=== PATIENT | male | born 1985 | race Caucasian/White ===

== ENCOUNTER 2019-10-03 07:55 | Emergency (ER) | payer MEDICAID, SELFPAY ==
[2019-10-03 07:56] VITALS: BP 144/86; PULSE 102; RESP 16; TEMP 36.9; O2SAT 97; BMI 34.2
--- NOTE | 2019-10-03 08:09 | ED.VIS.GEN ---
History of Present Illness Chief Complaint: Fever Informant: Patient Narrative: Patient states for the past couple days he has had a sore throat that is worsened. He denies any cough. He has had fever up to 103. He took Motrin around 5 or 6 this morning. No diarrhea or rashes. Patient works in healthcare at nursing homes. Patient notes he has had decreased p.o. intake because of the pain of swallowing Past Medical History - Allergies and Home Meds Allergies/Adverse Reactions: Allergies No Known Allergies Allergy (Verified 10/03/19 08:01) Primary Care Physician: Care Physician,No Primary [Primary Care Provider] - Smoking Status: Current every day smoker Review of Systems General: Reports: Chills, Fever, Malaise. Denies: Sweats Eyes: Denies: Visual changes - bilaterally, Diplopia ENT: Reports: Sore throat. Denies: Rhinorrhea Cardiovascular: Denies: Chest pain, Palpitations Respiratory: Denies: Dyspnea, Cough, Dyspnea on exertion Gastrointestinal: Denies: Abdominal pain, Nausea, Vomiting, Diarrhea, Melena, Hematochezia Genitourinary: Denies: Dysuria, Hematuria, Frequency Musculoskeletal: Reports: Myalgias, Back pain. Denies: Extremity Pain Skin: Denies: Rash, Wounds Neurological: Denies: Headache, Weakness, Numbness Physical Exam Vital Signs/Narrative: Vital Signs Temp Pulse Resp BP Pulse Ox 10/03/19 07:56 98.4 F 102 H 16 144/86 H 97 Inital Vital Signs reviewed: Yes General: Well nourished, Well developed, No Acute Distress Head: Normocephalic, Atraumatic Eyes: Perrl, EOMI ENT: Moist mucous membranes, No rhinorrhea, - - There is oral pharyngeal erythema tonsillar exudates and mild swelling. There is no evidence of retropharyngeal or peritonsillar abscess. Neck: Supple, - - There are tender anterior lymphadenopathy.. Negative for: No lymphadenopathy Cardiovascular: Regular rate, Regular rhythm, No murmurs Respiratory: No distress, CTA bilaterally, Chest nontender Abdomen: Soft, Nontender, Nondistended, Normal bowel sounds Back: Nontender, Normal Inspection Extremities: Nontender, No edema Skin: Normal color, No rash Neurological: Alert, Oriented x3, Cranial nerves II-XII grossly intact, Normal Strength, Normal Sensation Psychological: Normal affect, Normal Mood Diagnostic/Tx/Re-eval - Medical Decision Making A throat culture was obtained and COVID testing was performed. These results will not be back immediately. Patient will be discharged home after dose of Decadron. He will be started on penicillin. Patient is to self quarantine until his testing is back. ED Disposition - Plan for ED Patient: Disposition: Home or Assisted Living Diagnosis: Pharyngitis Instructions: ED Pharyngitis Report Pending Prescriptions: Penicillin V Potassium 500 mg PO 4X/DAY #40 tab Prescription Printed Referrals: Mary Grace Gan MD [STAFF PHYSICIAN] - (As needed for primary care if you do not have one.)
[2019-10-03] MEDS: dexAMETHasone 10 MG/ML Vial PO.IVFORM (08:29)
--- NOTE | 2019-10-03 08:35 | ED.RN ---
[facility] HANDOUT PROVIDED WITH MEDICAL RECORD NUMBER. INSTRUCTIONS PROVIDED FOR ACCESSING RIVKA/WEBSITE AND RECORDS. VERBALIZED UNDERSTANDING.
== END 2019-10-03 08:34 | disposition home or self-care (01) ==
LOC: ED 08:22
PROVIDERS: Emergency Provider Emergency Medicine; PCP Family Medicine
DX: J02.9 Acute pharyngitis, unspecified (principal); F17.200 Nicotine dependence, unspecified, uncomplicated
CPT/HCPCS: 87070; 87635; 99283; G2023; U0003

== ENCOUNTER 2021-02-13 11:15 | Emergency (ER) | payer MEDICAID, SELFPAY ==
[2021-02-13 11:16] VITALS: BP 144/96; PULSE 71; RESP 16; TEMP 36.7; O2SAT 100; BMI 32.8
--- NOTE | 2021-02-13 12:12 | CT_ITS ---
STUDY: CT ABDOMEN AND PELVIS WITHOUT CONTRAST REASON FOR EXAM: Male, 35 years old. Left flank pain. History of stones. RADIATION DOSAGE (If Supplied By Facility): CTDIvol = ( 18.55 ) mGy, DLP = ( 1056.63 ) mGycm TECHNIQUE: Transaxial images were obtained from the dome of the diaphragm to the symphysis pubis without oral contrast, and without intravenous contrast. Sagittal and coronal images were reconstructed. Individualized dose optimization techniques were used for this CT. COMPARISON: None. FINDINGS: The visualized lung bases are unremarkable. The visualized portions of the heart are within normal limits. Normal liver. Normal gallbladder and extrahepatic biliary system. Normal spleen. Normal pancreas. Normal bilateral adrenal glands. Tiny nonobstructive right intrarenal calculi. Punctate calculus in the upper pole calyx of the left kidney. Mild degree of left hydronephrosis and hydroureter due to a 4.2 mm x 3 mm calculus in the distal portion of the left ureter. There is a small hiatal hernia. Normal small intestine. Normal colon. The appendix is visualized and appears normal. There is scattered atherosclerotic calcification of the abdominal aorta, without a demonstrated aneurysm. Normal inferior vena cava. Normal retroperitoneum. Normal urinary bladder. There is a small umbilical hernia containing fat. Normal osseous structures. CT/Abdomen/Pelvis without Cont IMPRESSION: Nonobstructive bilateral intrarenal calculi. Mild degree of left hydronephrosis and left hydroureter due to a 4.2 mm x 3 mm calculus in the distal portion of the left ureter. Electronically Signed: Antwan Frank MD at 13:33 EDT , Service support ,
[2021-02-13 12:19] LABS: Absolute Lymphocyte Count 2.06 X10^3/uL (0.83-4.51); Absolute Neutrophil Count 6.8 X10^3/uL (2.0-7.7); Basophil# 0.07 X10^3/uL; Basophil% 0.7 % (0-1); Eosinophil# 0.36 X10^3/uL; Eosinophils% 3.6 % (0-5); Hematocrit 48.5 % (40-54); Hemoglobin 16.9 g/dL (13.0-16.5); Lymphocyte # 2.06 X10^3/ul (0.83-4.51); Lymphocyte % 20.7 % (19-41); Mean Corp Hgb Conc 34.8 g/dL (32-36); Mean Corpuscular Hgb 32.9 pg (27.0-32.0); Mean Corpuscular Volume 94.5 fL (80-94); Mean Platelet Vol. 9.4 fl (6.2-12.0); Monocyte# 0.64 X10^3/uL; Monocyte% 6.4 % (0-10); NRBC Flagged by Analyzer 0 % (0-5); Neutrophil # 6.77 X10^3/uL (2.7-7.7); Neutrophil % 68.3 % (47-70); Platelet Count 239 K/mm3 (150-450); RBC Distribution Width CV 11.9 % (11.6-14.6); RBC Distribution Width SD 41.6 fl (35.1-43.9); Red Blood Count 5.13 M/mm3 (4.6-6.2); White Blood Count 9.9 K/mm3 (4.4-11.0)
--- NOTE | 2021-02-13 12:26 | EDS_ITS ---
HPI History of Present Illness Chief Complaint: Flank Pain Informant: patient Onset/Context/Timing Onset: Today Context: Gradual Onset Timing: Continuous Quality: Sharp Location: Left lower quadrant and left flank Worsened by: Pressure Relieved by: Laying flat Narrative Narrative: Patient presents with left flank pain and hematuria that began today. Patient states he has a history of kidney stones. Patient states this feels similar to prior kidney stones. Patient states the pain is over the left flank and left lower quadrant. Patient states it feels like a pressure. Patient states it is better whenever he lays flat. Patient states his last kidney stone was approximately 4 months ago. Patient admits to nausea but denies any vomiting. Patient denies any diarrhea. Patient denies any dysuria. [facility] Medical History Kidney stones Home Medications hydrocodone-acetaminophen 1 tab PO Q6H PRN PRN 3 Days #10 tablet 02/13/21 [Rx Last Taken Unknown] Allergy/AdvReac Type Severity Reaction Status Date / Time No Known Allergies Allergy Verified 10/03/19 08:01 Social History Smoking Status: Current every day smoker tobacco type: cigarettes ROS ROS ED Constitutional Constitutional ED: Denies chills or fever(s) Eyes Eyes: Denies blurry vision or change in vision ENT ENT ED: Denies rhinorrhea or sore throat Cardiovascular Cardiovascular: Denies chest pain or palpitations Respiratory/Chest Respiratory/Chest: Denies cough or dyspnea Gastrointestinal Gastrointestinal: Reports abdominal pain and nausea; Denies vomiting Genitourinary Genitourinary ED: Reports hematuria; Denies dysuria Musculoskeletal Musculoskeletal: Reports back pain; Denies neck pain Integumentary Denies abscess or rash Neurologic Neurologic: Denies headache(s) or weakness Allergic/Immunologic Allergic/Immunologic ED: Denies mouth swelling or urticaria EXAM Physical Exam Const Vital Signs: 02/13/21 11:16 Temperature 98.0 F Temperature Source Temporal Pulse Rate 71 Respiratory Rate 16 Blood Pressure 144/96 H Blood Pressure Mean 112 Pulse Ox 100 Oxygen Delivery Method Room Air Positive well nourished and well developed General Appearance ED: well developed HEENT Reports moist mucous membranes Neck supple and no JVD Resp normal respiratory effort and clear to auscultation bilaterally Cardio regular rate, regular rhythm and no murmurs GI normal to inspection, nondistended, normoactive bowel sounds Palpation: soft and tender LLQ; Negative for guarding or rebound tenderness present Extremity normal to inspection General Extremety ED: Negative for edema or tenderness General Extremity: Negative for edema Neuro oriented x3, CN's II-XII intact bilaterally and no sensory deficits noted Sensorium / Orientation: alert Motor Exam: strength 5/5 throughout Psych mental status grossly normal Skin no rashes or lesions noted MDM MDM MDM Narrative Medical decision making narrative: Patient was given IV fluids, morphine, and Zofran here. CBC was within normal limits. Comprehensive metabolic profile was essentially within normal limits. Urinalysis shows occult blood of 250 with 5100 red blood cells. There is no evidence of urinary tract infection. CT scan of the abdomen pelvis was obtained. There is a 4 x 3 mm calculus in the left d istal ureter. There is left hydronephrosis and hydroureter. There are nonobstructive renal calculi as well. This was interpreted by the radiologist and reviewed by myself. Patient was feeling better on reevaluation. Patient was given a prescription for [place]. Patient was instructed to drink plenty of fluids. Patient was instructed to follow-up with his primary care physician and urologist in 3 to 5 days. Patient understood and was agreeable with the plan. All questions were answered. Lab Data Attestation: I reviewed the patient's lab results. Labs: Laboratory Results - last 24 hr 02/13/21 02/13/21 02/13/21 12:10 12:10 13:25 WBC 9.9 RBC 5.13 Hgb 16.9 H Hct 48.5 MCV 94.5 H MCH 32.9 H MCHC 34.8 RDW Std Deviation 41.6 RDW Coeff of Melisa 11.9 Plt Count 239 MPV 9.4 Immature Gran % (Auto) 0.300 Neut % (Auto) 68.3 Lymph % (Auto) 20.7 [place] % (Auto) 6.4 Eos % (Auto) 3.6 Baso % (Auto) 0.7 Absolute Neuts (auto) 6.8 Absolute Lymphs (auto) 2.06 Nucleated RBC % 0 Sodium 141 Potassium 3.9 Chloride 111 H Carbon Dioxide 25.0 Anion Gap 5 BUN 11 Creatinine 1.05 Estim Creat Clear Calc 106.58 Est GFR (MDRD) Af Amer 104 Est GFR (MDRD) Non-Af 86 BUN/Creatinine Ratio 10.5 Glucose 103 Calcium 9.0 Total Bilirubin 0.60 AST 14 L ALT 26 Alkaline Phosphatase 84 Total Protein 7.6 Albumin 3.7 Globulin 3.9 Albumin/Globulin Ratio 0.9 Urine Color Yellow Urine Clarity Cloudy Urine pH 6.0 Ur Specific [place] 1.015 Urine Protein 30 H Urine Glucose (UA) Normal Urine Ketones Negative Urine Occult Blood 250 H Urine Nitrite Negative Urine Bilirubin Negative Urine Urobilinogen Normal Ur Leukocyte Esterase 25 H Urine RBC 50-100 SEEN Urine WBC 0-5 SEEN Ur Squamous Epith Cells 0-5 SEEN Urine Bacteria 1+ Urine Mucus 1+ Radiography Diagnostic Testing: Clinical Impression(s) from Imaging Studies Abdomen/Pelvis CT 02/13/21 12:12 IMPRESSION: Nonobstructive bilateral intrarenal calculi. Mild degree of left hydronephrosis and left hydroureter due to a 4.2 mm x 3 mm calculus in the distal portion of the left ureter. Electronically Signed: Antwan Frank MD at 13:33 EDT , Service support , Discharge Plan Triage Chief Complaint: Flank Pain ED Provider: Ji Sims Dx/Rx/DC Orders Clinical Impression: Calculus of distal left ureter Instructions: ED Kidney Stone w/ Colic Prescriptions: New hydrocodone-acetaminophen [hydrocodone-acetaminophen] 1 TABLET tablet 1 tab PO Q6H PRN PRN (Reason: Pain) 3 Days Qty: 10 RF: 0 Primary Care Provider: Care Physician,No Primary Referrals: Care Physician,No Primary [Primary Care Provider] - 3-5 Days Disposition Disposition: Home, Self Care
[2021-02-13] MEDS: 0.9% Normal Saline 1,000 ML 1000 ML IV (12:36)
[2021-02-13] MEDS: Morphine 4 MG/ML Syringe IV ×2 (12:36→14:42)
[2021-02-13] MEDS: Ondansetron 4 MG/2 ML Vial IV (12:36)
[2021-02-13 12:41] LABS: ALB/GLOB Ratio 0.9 RATIO (0.9-2.4); AST(SGOT) 14 U/L (15-37); Alanine Aminotransfer ALT/SGPT 26 U/L (16-61); Albumin, Serum 3.7 g/dL (3.2-5.0); Alkaline Phosphatase 84 U/L (45-117); Anion Gap 5 (5-15); BUN 11 mg/dL (7-18); BUN/Creat Ratio 10.5 RATIO (10-20); Chloride 111 mmol/L (98-107); Creatinine, Serum 1.05 mg/dL (0.70-1.30); EST Glomerular Filtration Rate 86 mL/min (>60); Est Glom Filt Rate - Afr Amer 104 mL/min (>60); Estimated Creatinine Clearance 106.58 ml/min; Globulin 3.9 g/dL (2.2-4.2); Glucose 103 mg/dL (74-106); Potassium 3.9 mmol/L (3.5-5.1); Protein, Total 7.6 g/dL (6.4-8.2); Sodium Level 141 mmol/L (136-145)
[2021-02-13 13:31] LABS: Color, Urine Yellow (Yellow); Glucose, Dipstick Normal (Normal); Ketone-Dipstick Negative (Negative); Leukocyte Esterase-Dipstick 25 /ul (Negative); Nitrite-Dipstick Negative (Negative); Occult Blood-Urine 250 /ul (Negative); Protein-Dipstick 30 mg/dl (Negative); Specific Gravity, Urine 1.015 (1.002-1.030); Urine Bilirubin Dipstick Negative (Negative); Urine Clarity Cloudy (Clear); Urine Urobilinogen Normal (Normal)
[2021-02-13 13:37] LABS: Red Blood Cells-Urine 50-100 SEEN /hpf (0-5); White Blood Cells 0-5 SEEN /hpf (0-5)
[2021-02-13 13:38] LABS: Bacteria 1+ /hpf (None Seen); Mucous, Urine 1+ /hpf (<or=2+); Squamous Epithelial Cells - UA 0-5 SEEN /hpf (0-5)
[2021-02-13 15:08] VITALS: BP 161/98; PULSE 79; RESP 16; O2SAT 95
== END 2021-02-13 15:09 | disposition home or self-care (01) ==
PROVIDERS: Emergency Provider Emergency Medicine
DX: N13.2 Hydronephrosis with renal and ureteral calculous obstruction (principal); F17.210 Nicotine dependence, cigarettes, uncomplicated; Z87.442 Personal history of urinary calculi
CPT/HCPCS: 74176; 80053; 81001; 85025; 96361; 96374; 96375; 96376; 99283; J2405

== ENCOUNTER 2021-10-13 19:17 | Emergency (ER) | payer MEDICAID, SELFPAY ==
[2021-10-13 19:19] VITALS: BP 163/106; PULSE 73; RESP 18; TEMP 36.3; O2SAT 100; BMI 31.4
--- NOTE | 2021-10-13 20:30 | EDS_ITS ---
HPI History of Present Illness Chief Complaint: Flank Pain Onset/Context/Timing Onset: Days (4 days) Timing: Waxes and wanes Current Severity: Moderate Maximum Severity: Severe Narrative Narrative: Patient presents secondary to right-sided kidney stone. He was seen at the emergency room in [place] on the . Per CT report he has a 4 mm calculus in the mid right ureter. He is scheduled to see a urologist in [place] on October 29. Patient states that throughout the weekend he had continued pain. He went back to the ER today but his pain is not well controlled. He states that in spite of telling him his pain was severe they brought him his discharge paperwork. He came to [place] [facility] for further treatment. [facility] Medical History Kidney stones Home Medications ketorolac 10 mg tablet 10 mg PO Q6H PRN pain 3 days #10 tabs 10/13/21 [Rx Last Taken Unknown] oxycodone-acetaminophen 5 mg-325 mg tablet (Percocet) 1 tab PO Q6H PRN pain 3 days #10 tabs 10/13/21 [Rx Last Taken Unknown] Allergy/AdvReac Type Severity Reaction Status Date / Time No Known Allergies Allergy Verified 10/13/21 19:18 Social History Smoking Status: Current every day smoker tobacco type: cigarettes ROS ROS ED Constitutional Constitutional ED: Denies chills or fever(s) Eyes Eyes: Denies change in vision or discharge from eye(s) ENT ENT ED: Denies discharge from eye(s), rhinorrhea or sore throat Cardiovascular Cardiovascular: Denies chest pain or palpitations Respiratory/Chest Respiratory/Chest: Denies cough or dyspnea Gastrointestinal Gastrointestinal: Reports abdominal pain, nausea and vomiting; Denies diarrhea Genitourinary Genitourinary ED: Denies difficulty urinating or dysuria Musculoskeletal Musculoskeletal: Reports back pain; Denies extremity pain Integumentary Denies Abrasions or rash Neurologic Neurologic: Denies headache(s) or weakness Psychiatric Psychiatric: Denies anxiety or depression Endocrine Endocrinology: Denies polydipsia or polyuria Allergic/Immunologic Allergic/Immunologic ED: Denies lip swelling or urticaria EXAM Physical Exam Const Vital Signs: 10/13/21 19:19 Temperature 97.4 F L Temperature Source Temporal Pulse Rate 73 Respiratory Rate 18 Blood Pressure 163/106 H Blood Pressure Mean 125 Pulse Ox 100 Oxygen Delivery Method Room Air Positive well nourished and well developed General Appearance ED: well developed HEENT Reports normocephalic and head/scalp atraumatic Eyes PERRL and EOMs intact bilaterally Neck supple Chest Wall inspection of chest normal and palpation of chest normal Resp normal respiratory effort and clear to auscultation bilaterally Cardio regular rate and regular rhythm GI non-tender Auscultation: hypoactive bowel sounds Palpation: soft Back/Spine General Back: CVA tenderness right Extremity normal to inspection Neuro oriented x3 and no sensory deficits noted Sensorium / Orientation: alert Motor Exam: strength 5/5 throughout Psych mental status grossly normal Skin no rashes or lesions noted MDM MDM MDM Narrative Medical decision making narrative: Patient was initially given morphine, Zofran, Toradol. Lab work and urinalysis obtained. KUB ordered. Lab Data Attestation: I reviewed the patient's lab results. Labs: Laboratory Results - last 24 hr 10/13/21 10/13/21 10/13/21 20:05 20:05 20:05 WBC 12.8 H RBC 4.63 Hgb 15.4 Hct 45.4 MCV 98.1 H MCH 33.3 H MCHC 33.9 RDW Std Deviation 43.6 RDW Coeff of Melisa 12.1 Plt Count 204 MPV 10.0 Immature Gran % (Auto) 0.300 Neut % (Auto) 64.7 Lymph % (Auto) 21.8 [place] % (Auto) 8.6 Eos % (Auto) 4.1 Baso % (Auto) 0.5 Absolute Neuts (auto) 8.3 H Absolute Lymphs (auto) 2.78 Nucleated RBC % 0 Sodium 141 Potassium 3.9 Chloride 110 H Carbon Dioxide 27.0 Anion Gap 4 L BUN 14 Creatinine 1.23 Estim Creat Clear Calc 92.88 Est GFR (MDRD) Af Amer 86 Est GFR (MDRD) Non-Af 71 BUN/Creatinine Ratio 11.4 Glucose 82 Calcium 8.7 Urine Color Yellow Urine Clarity Sl Cldy Urine pH 6.5 Ur Specific [place] 1.010 Urine Protein 15 H Urine Glucose (UA) Normal Urine Ketones Negative Urine Occult Blood 250 H Urine Nitrite Negative Urine Bilirubin Negative Urine Urobilinogen Normal Ur Leukocyte Esterase Negative Urine RBC 50-100 SEEN Urine WBC 0 SEEN Ur Squamous Epith Cells 0 SEEN Amorphous Sediment 1+ URATE Urine Bacteria 0 SEEN Urine Mucus 0 SEEN Radiography Diagnostic Testing: Clinical Impression(s) from Imaging Studies KUB X-Ray 10/13/21 21:00 IMPRESSION: 1. Presence of a questionable 3 mm diameter distal right ureteral calculus versus phlebolith in the right pelvis, at approximately 2 cm above the bladder. 2. No evidence of other calcifications or calculi in the regions of the kidneys, ureters, or bladder. 3. Mild constipation. 4. No abdominal organomegaly. 5. Normal osseous structures. Electronically Signed: Nikita Kahn MD at 21:31 EDT , Treatment and Re-Evaluation Narrative: Lab work reveals white count of 12.8 with no significant left shift. Chemistry studies unremarkable. Urinalysis reveals blood but no sign of infection. KUB r eveals a questionable 3 mm distal right ureter calculus. I reviewed the images as well as the radiology report. On repeat evaluation patient has required 1 dose of Dilaudid here for pain but at this time seems to be improved. It appears the patient was not given any kind of anti-inflammatory to help with ureteral spasm. He will be given a prescription for Toradol as well as Percocet as he is currently out. He will be given phone number for Dr. Brown, on-call for urology. Discharge Plan Triage Chief Complaint: Flank Pain ED Provider: Liliana Butts Dx/Rx/DC Orders Clinical Impression: Ureterolithiasis Instructions: ED Kidney Stone w/ Colic Prescriptions: New oxycodone-acetaminophen [Percocet] 5-325 mg tablet 1 tab PO Q6H PRN (Reason: pain) 3 Days Qty: 10 0RF ketorolac 10 mg tablet 10 mg PO Q6H PRN (Reason: pain) 3 Days Qty: 10 0RF Primary Care Provider: Care Physician,No Primary Referrals: Anurag Brown MD [STAFF PHYSICIAN] - 1 Week if not improving Care Physician,No Primary [Primary Care Provider] - Disposition Disposition: Home, Self Care
[2021-10-13] MEDS: Morphine 4 MG/ML Syringe IV (20:32)
[2021-10-13] MEDS: Ketorolac 30 MG/ML Syringe IV (20:32)
[2021-10-13] MEDS: Ondansetron 4 MG/2 ML Vial IV (20:32)
[2021-10-13] MEDS: 0.9% Normal Saline 1,000 ML 1000 ML IV (20:32)
[2021-10-13 20:43] LABS: Bacteria 0 SEEN /hpf (None Seen); Mucous, Urine 0 SEEN /hpf (<or=2+); Squamous Epithelial Cells - UA 0 SEEN /hpf (0-5); White Blood Cells 0 SEEN /hpf (0-5)
[2021-10-13 20:45] LABS: Absolute Lymphocyte Count 2.78 X10^3/uL (0.83-4.51); Absolute Neutrophil Count 8.3 X10^3/uL (2.0-7.7); Basophil# 0.06 X10^3/uL; Basophil% 0.5 % (0-1); Color, Urine Yellow (Yellow); Eosinophil# 0.52 X10^3/uL; Eosinophils% 4.1 % (0-5); Glucose, Dipstick Normal (Normal); Hematocrit 45.4 % (40-54); Hemoglobin 15.4 g/dL (13.0-16.5); Ketone-Dipstick Negative (Negative); Leukocyte Esterase-Dipstick Negative /ul (Negative); Lymphocyte # 2.78 X10^3/ul (0.83-4.51); Lymphocyte % 21.8 % (19-41); Mean Corp Hgb Conc 33.9 g/dL (32-36); Mean Corpuscular Hgb 33.3 pg (27.0-32.0); Mean Corpuscular Volume 98.1 fL (80-94); Monocyte% 8.6 % (0-10); NRBC Flagged by Analyzer 0 % (0-5); Neutrophil # 8.27 X10^3/uL (2.7-7.7); Neutrophil % 64.7 % (47-70); Nitrite-Dipstick Negative (Negative); Occult Blood-Urine 250 /ul (Negative); Platelet Count 204 K/mm3 (150-450); Protein-Dipstick 15 mg/dl (Negative); RBC Distribution Width CV 12.1 % (11.6-14.6); RBC Distribution Width SD 43.6 fl (35.1-43.9); Red Blood Count 4.63 M/mm3 (4.6-6.2); Urine Bilirubin Dipstick Negative (Negative); Urine Urobilinogen Normal (Normal); Urine pH 6.5 (5.0 - 8.0); White Blood Count 12.8 K/mm3 (4.4-11.0)
[2021-10-13 20:57] LABS: Anion Gap 4 (5-15); BUN 14 mg/dL (7-18); BUN/Creat Ratio 11.4 RATIO (10-20); Calcium,Total 8.7 mg/dL (8.5-10.1); Chloride 110 mmol/L (98-107); Creatinine, Serum 1.23 mg/dL (0.70-1.30); EST Glomerular Filtration Rate 71 mL/min (>60); Est Glom Filt Rate - Afr Amer 86 mL/min (>60); Estimated Creatinine Clearance 92.88 ml/min; Glucose 82 mg/dL (74-106); Potassium 3.9 mmol/L (3.5-5.1); Sodium Level 141 mmol/L (136-145)
--- NOTE | 2021-10-13 21:00 | RAD_ITS ---
STUDY: AP ABDOMEN X-RAY SERIES OF 2105 HOURS ON 10/13/2021 REASON FOR EXAM: 36-year-old male with right ureterolithiasis. TECHNIQUE: 3 AP views of the abdomen were obtained. COMPARISON: None. FINDINGS: The osseous structures are normal. There is no abdominal organomegaly. Mild constipation is seen. No evidence of calcifications or calculi in the regions of the kidneys or proximal ureters. There is a questionable 3 mm in diameter calculus or phlebolith in the right pelvis overlying the inferior right sacrum, approximately 2 cm above the bladder. There is no evidence of a calcification or calculi in the region of the ureters or bladder. RAD/Abdomen Single View IMPRESSION: 1. Presence of a questionable 3 mm diameter distal right ureteral calculus versus phlebolith in the right pelvis, at approximately 2 cm above the bladder. 2. No evidence of other calcifications or calculi in the regions of the kidneys, ureters, or bladder. 3. Mild constipation. 4. No abdominal organomegaly. 5. Normal osseous structures. Electronically Signed: Nikita Kahn MD at 21:31 EDT ,
[2021-10-13] MEDS: HYDROmorphone 1 MG/ML Syringe IV (21:25)
[2021-10-13 21:27] LABS: Red Blood Cells-Urine 50-100 SEEN /hpf (0-5)
[2021-10-13 21:28] LABS: Amorphous Sediment 1+ URATE; Urine Clarity Sl Cldy (Clear)
[2021-10-13 22:18] VITALS: RESP 18
== END 2021-10-13 22:19 | disposition home or self-care (01) ==
PROVIDERS: Emergency Provider Emergency Medicine; Visit Provider Emergency Medicine
DX: N20.1 Calculus of ureter (principal); F17.210 Nicotine dependence, cigarettes, uncomplicated; Z87.442 Personal history of urinary calculi
CPT/HCPCS: 74018; 80048; 81001; 85025; 96361; 96374; 96375; 99283; J7030; A4216; J2405

== ENCOUNTER → 2022-07-08 | Outpatient (CLI) | payer BC, MEDICAID, SELFPAY ==
--- NOTE | 2022-07-08 14:08 | RAD_ITS ---
STUDY: X-RAY - LUMBAR SPINE REASON FOR EXAM: Male, 37 years old. Low back pain. TECHNIQUE: 2 view(s) of the lumbar spine were obtained. COMPARISON: None FINDINGS: Normal lumbar lordosis. There is no substantial scoliosis. There is a normal alignment of the vertebrae. Mild diffuse facet sclerosis. No acute abnormality. Normal disc space heights. The soft tissue structures are unremarkable. RAD/Lumbar Spine 2 or 3 Views IMPRESSION: Mild diffuse facet sclerosis. No acute abnormality, evidence of erosive changes/fusion. Electronically Signed: Dominguez Montes, at 15:47 EDT ,
--- NOTE | 2022-07-08 14:08 | RAD_ITS ---
STUDY: X-RAY - THORACIC SPINE REASON FOR EXAM: Male, 37 years old. Back pain. TECHNIQUE: 3 view(s) of the thoracic spine were obtained. COMPARISON: None. FINDINGS: Normal kyphosis of the thoracic spine. There is no substantial scoliosis. Mild diffuse intervertebral disc space narrowing with small osteophytes. No acute abnormality. Normal soft tissues. RAD/Thoracic Spine 3 Views IMPRESSION: Mild diffuse thoracic spondylosis. No other abnormality. Electronically Signed: Dominguez Montes, at 15:46 EDT ,
--- NOTE | 2022-07-08 14:08 | RAD_ITS ---
STUDY: X-RAY - RIGHT SHOULDER REASON FOR EXAM: Male, 37 years old. Right shoulder pain. TECHNIQUE: 4 view(s) of the shoulder. COMPARISON: None. FINDINGS: Normal glenohumeral articulation. Mild arthrosis of the AC joint. Normal acromion. Normal humeral head and visualized proximal humerus. Normal soft tissues. Normal visualized pulmonary apex. RAD/Shoulder min 2 Views IMPRESSION: Mild arthrosis of the AC joint. No other abnormality. Electronically Signed: Dominguez Montes, at 15:33 EDT ,
[2022-07-08 15:28] LABS: Absolute Lymphocyte Count 2.44 X10^3/uL (0.83-4.51); Absolute Neutrophil Count 7.1 X10^3/uL (2.0-7.7); Basophil# 0.09 X10^3/uL; Basophil% 0.8 % (0-1); Eosinophils% 3.7 % (0-5); Hematocrit 49.4 % (40-54); Hemoglobin 16.7 g/dL (13.0-16.5); Lymphocyte # 2.44 X10^3/ul (0.83-4.51); Lymphocyte % 22.5 % (19-41); Mean Corp Hgb Conc 33.8 g/dL (32-36); Mean Corpuscular Hgb 32.7 pg (27.0-32.0); Mean Corpuscular Volume 96.9 fL (80-94); Mean Platelet Vol. 9.9 fl (6.2-12.0); Monocyte# 0.78 X10^3/uL; Monocyte% 7.2 % (0-10); NRBC Flagged by Analyzer 0 % (0-5); Neutrophil # 7.09 X10^3/uL (2.7-7.7); Neutrophil % 65.5 % (47-70); Platelet Count 244 K/mm3 (150-450); RBC Distribution Width CV 12.1 % (11.6-14.6); RBC Distribution Width SD 43.5 fl (35.1-43.9); White Blood Count 10.8 K/mm3 (4.4-11.0)
[2022-07-08 16:37] LABS: ALB/GLOB Ratio 1.3 RATIO (0.9-2.4); AST(SGOT) 17 U/L (15-37); Alanine Aminotransfer ALT/SGPT 30 U/L (16-61); Albumin, Serum 4.2 g/dL (3.2-5.0); Alkaline Phosphatase 86 U/L (45-117); Anion Gap 7 (5-15); BUN 15 mg/dL (7-18); Calcium,Total 9.2 mg/dL (8.5-10.1); Chloride 108 mmol/L (98-107); Cholesterol 155 mg/dL (200); Creatinine, Serum 1.07 mg/dL (0.70-1.30); EST Glomerular Filtration Rate 84 mL/min (>60); Est Glom Filt Rate - Afr Amer 101 mL/min (>60); Globulin 3.3 g/dL (2.2-4.2); Glucose 80 mg/dL (74-106); High Density Lipoprotein 37 mg/dL; Protein, Total 7.5 g/dL (6.4-8.2); Sodium Level 142 mmol/L (136-145); Thyroid Stim Hormone (TSH) 2.52 uIU/mL (0.358-3.74); Triglycerides 138 mg/dL; Very Low Density Lipoprotein 28 mg/dL (5-40)
== END | disposition home or self-care (01) ==
PROVIDERS: PCP Nurse Practitioner Family; Visit Provider Nurse Practitioner Family
DX: M54.16 Radiculopathy, lumbar region (principal); M54.6 Pain in thoracic spine; G89.29 Other chronic pain; M25.511 Pain in right shoulder
CPT/HCPCS: 36415; 72072; 72100; 73030; 80053; 80061; 84443; 85025

== ENCOUNTER 2022-08-30 21:04 | Emergency (ER) | payer MEDICAID, SELFPAY ==
[2022-08-30 21:05] VITALS: BP 157/109; PULSE 89; RESP 18; TEMP 36.1; O2SAT 100; BMI 32.4
--- NOTE | 2022-08-30 21:21 | ED.VIS.GI ---
HPI HPI - GI History of Present Illness Chief Complaint: Abd Pain Detail of Chief Complaint: Abdominal pain, vomiting, and diarrhea Informant: patient Narrative Narrative: Patient presents the emergency department with complaint of abdominal pain x2 days. Patient states that he is also had vomiting and diarrhea frequently. He had about 4 episodes of vomiting today and about 7 or 8 watery stools. 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 Patient states he had a fever up to 102 at home. He said chills and sweats. No prior abdominal surgeries. PFSH PFSH Medical History (Updated 08/30/22 @ 23:[address] Gregg Smith, DO) Back problem Caffeine abuse, continuous Chronic right shoulder pain Chronic thoracic back pain Kidney stones Lumbar radiculopathy, chronic Marijuana abuse Home Medications dicyclomine 10 mg capsule 20 mg PO TIDAC #20 CAPSULES 08/30/22 [Rx Last Taken Unknown] ondansetron 4 mg disintegrating tablet 4 mg PO Q8H PRN PRN Nausea #10 tabs 08/30/22 [Rx Last Taken Unknown] Allergy/AdvReac Type Severity Reaction Status Date / Time No Known Allergies Allergy Verified 08/30/22 21:07 Family History (Updated 07/08/22 @ 13:01 by Toya Mancilla) Other Angina at rest Anxiety Colon cancer Depression Diabetes Hypertension Melanoma Myocardial infarction Surgical History (Updated 07/08/22 @ 12:59 by Toya Mancilla) History of colonoscopy Social History (Updated 07/08/22 @ 13:00 by Toya Mancilla) Smoking Status: Current every day smoker tobacco type: cigarettes alcohol intake: never substance use type: does not use what type of physical activity do you participate in: none ROS ROS ED Review of Systems ROS Unobtainable: other Constitutional Constitutional ED: Reports lethargy; Denies chills, fever(s), sweats or weight loss Eyes Eyes: Denies blurry vision, change in vision or diplopia ENT ENT ED: Denies rhinorrhea or sore throat Cardiovascular Cardiovascular: Denies chest pain, orthopnea or racing heartbeat Respiratory/Chest Respiratory/Chest: Denies cough, dyspnea, dyspnea on exertion, orthopnea or sputum Gastrointestinal Gastrointestinal: Reports abdominal pain, diarrhea, nausea and vomiting Genitourinary Genitourinary ED: Denies dysuria, hematuria or urinary frequency Musculoskeletal Musculoskeletal: Denies arthralgias, back pain, myalgias or neck pain Integumentary Denies abscess, Abrasions or rash Neurologic Neurologic: Denies headache(s) or weakness Psychiatric Psychiatric: Denies anxiety, depression or suicidal thoughts Endocrine Endocrinology: Denies polydipsia, polyphagia or polyuria Hematologic/Lymphatic Hematologic/Lymphatic: Denies easy bleeding, easy bruising or lymphadenopathy Allergic/Immunologic Allergic/Immunologic ED: Denies mouth swelling, tongue swelling or urticaria EXAM Physical Exam Const Vital Signs: 08/30/22 21:05 08/30/22 22:49 Temperature 96.9 F L Temperature Source Temporal Pulse Rate 89 66 Respiratory Rate 18 Blood Pressure 157/109 H 135/89 H Blood Pressure Mean 125 104 Pulse Ox 100 Oxygen Delivery Method Room Air Room Air Fraction of Inspired Oxygen (FIO2) 98 Positive well nourished and well developed General Appearance ED: well developed and NAD HEENT Reports TM's clear and moist mucous membranes normocephalic and atraumatic; Negative for trauma or tenderness Tympanic Membrane ED: Yes TM's clear Eyes PERRL and EOMs intact bilaterally General Eye ED: Negative for pale conjunctiva or scleral icterus Neck no lymphadenopathy, supple and no JVD General: Negative for tenderness Chest Wall inspection of chest normal and palpation of chest normal Chest: Negative for tenderness Resp normal respiratory effort and clear to auscultation bilaterally Effort and Inspection: Negative for respiratory distress or pain with movement Auscultation: Negative for rhonchi, wheezes or diminished lung sounds Cardio regular rate, regular rhythm, S1 normal heart sound, S2 normal heart sound and no murmurs Peripheral Pulses: pulses 2+ throughout GI normal to inspection, nondistended, normoactive bowel sounds, soft to palpation, non-distended and no masses GI Narrative: Hyperactive bowel sounds. Mild diffuse tenderness throughout. There is no rebound, rigidity, or. Signs. Back/Spine no CVA tenderness and no thoracic nor lumbar tenderness Extremity normal to inspection General Extremety ED: Negative for edema General Extremity: Negative for edema Neuro oriented x3, CN's II-XII intact bilaterally, no sensory deficits noted and gait normal Sensorium / Orientation: awake, alert, oriented to person, oriented to place and oriented to time Motor Exam: strength 5/5 throughout and strength abnormal Psych mental status grossly normal Skin no rashes or lesions noted and no wounds MDM MDM MDM Narrative Medical decision making narrative: Patient presents with abdominal pain as well as vomiting and diarrhea. In the differential would be gastroenteritis versus other acute intra-abdominal process. Patient had a CBC with differential that showed a white count of 11.5 with a hemoglobin of 15.3 and a hematocrit of 44.4. Platelet count was 204. Chemistries unremarkable other than the depressed potassium of 3.1. I suspect the potassium is depressed secondary to diarrhea. While in department he was given a liter of the same fluid bolus and given Zofran and Bentyl. He had some pain relief with that but continues to complain of left lower quadrant pain. Patient was given 4 mg of morphine IV. I did obtain a CT scan of the abdomen pelvis without contrast to evaluate further his abdominal pain. He does have history of kidney stones. CT scan was read by radiology as small left renal stone otherwise no acute disease process. Discussed results with patient. He was feeling improved after treatment. I did also give him Imodium prior to discharge. Suspect patient likely has a viral gastroenteritis. Patient given a prescription for Zofran and Bentyl. Advised to follow-up with primary care physician 3 to 5 days. Patient advised to return if worsening pain, persistent vomiting, diarrhea, dehydration, or condition worsening way. Lab Data Attestation: I reviewed the patient's lab results. Labs: Laboratory Results - last 24 hr 08/30/22 08/30/22 21:30 21:30 WBC 11.5 H RBC 4.60 Hgb 15.3 Hct 44.4 MCV 96.5 H MCH 33.3 H MCHC 34.5 RDW Std Deviation 42.3 RDW Coeff of Melisa 11.9 Plt Count 204 MPV 9.6 Immature Gran % (Auto) 0.300 Neut % (Auto) 77.2 H Lymph % (Auto) 15.4 L [place] % (Auto) 5.6 Eos % (Auto) 1.2 Baso % (Auto) 0.3 Absolute Neuts (auto) 8.8 H Absolute Lymphs (auto) 1.76 Nucleated RBC % 0 Sodium 142 Potassium 3.1 L Chloride 111 H Carbon Dioxide 24.0 Anion Gap 7 BUN 11 Creatinine 0.82 Estim Creat Clear Calc 138.01 Est GFR (MDRD) Af Amer 137 Est GFR (MDRD) Non-Af 114 BUN/Creatinine Ratio 13.4 Glucose 147 H Calcium 8.8 Radiography Diagnostic Testing: Clinical Impression(s) from Imaging Studies Abdomen/Pelvis CT 08/30/22 22:07 IMPRESSION: Nonobstructive left renal stones. No hydronephrosis. Electronically Signed: Yao Meng DO at 23:13 EDT Reading Location ID and State: [facility] / [place] Tel [phone], Service support , Discharge Plan Triage Chief Complaint: Abd Pain ED Provider: Gregg Smith Dx/Rx/DC Orders Clinical Impression: Viral gastroenteritis, Abdominal pain Instructions: ED Gastroenteritis, Viral (Adult) Prescriptions: New ondansetron [ondansetron] 4 mg tablet,disintegrating 4 mg PO Q8H PRN PRN (Reason: Nausea) Qty: 10 0RF dicyclomine 10 mg capsule 20 mg PO TIDAC Qty: 20 0RF Primary Care Provider: Hector Segovia NP Referrals: Hector Segovia NP, [facility] [Primary Care Provider] - 3-5 Days Disposition Disposition: Home, Self Care
[2022-08-30] MEDS: Ondansetron 4 MG/2 ML Vial IV (21:28)
[2022-08-30] MEDS: 0.9% Normal Saline 1,000 ML 1000 ML IV (21:28)
[2022-08-30] MEDS: Dicyclomine 20 MG/2 ML Vial IM (21:30)
[2022-08-30 21:51] LABS: Absolute Lymphocyte Count 1.76 X10^3/uL (0.83-4.51); Absolute Neutrophil Count 8.8 X10^3/uL (2.0-7.7); Basophil# 0.04 X10^3/uL; Basophil% 0.3 % (0-1); Eosinophil# 0.14 X10^3/uL; Eosinophils% 1.2 % (0-5); Hematocrit 44.4 % (40-54); Hemoglobin 15.3 g/dL (13.0-16.5); Lymphocyte # 1.76 X10^3/ul (0.83-4.51); Lymphocyte % 15.4 % (19-41); Mean Corp Hgb Conc 34.5 g/dL (32-36); Mean Corpuscular Hgb 33.3 pg (27.0-32.0); Mean Corpuscular Volume 96.5 fL (80-94); Mean Platelet Vol. 9.6 fl (6.2-12.0); Monocyte# 0.64 X10^3/uL; Monocyte% 5.6 % (0-10); NRBC Flagged by Analyzer 0 % (0-5); Neutrophil # 8.84 X10^3/uL (2.7-7.7); Neutrophil % 77.2 % (47-70); Platelet Count 204 K/mm3 (150-450); RBC Distribution Width CV 11.9 % (11.6-14.6); RBC Distribution Width SD 42.3 fl (35.1-43.9); White Blood Count 11.5 K/mm3 (4.4-11.0)
[2022-08-30 22:03] LABS: Anion Gap 7 (5-15); BUN 11 mg/dL (7-18); BUN/Creat Ratio 13.4 RATIO (10-20); Calcium,Total 8.8 mg/dL (8.5-10.1); Chloride 111 mmol/L (98-107); Creatinine, Serum 0.82 mg/dL (0.70-1.30); EST Glomerular Filtration Rate 114 mL/min (>60); Est Glom Filt Rate - Afr Amer 137 mL/min (>60); Estimated Creatinine Clearance 138.01 ml/min; Glucose 147 mg/dL (74-106); Potassium 3.1 mmol/L (3.5-5.1); Sodium Level 142 mmol/L (136-145)
--- NOTE | 2022-08-30 22:07 | CT_ITS ---
STUDY: CT ABDOMEN AND PELVIS WITHOUT CONTRAST REASON FOR EXAM: Male, 37 years old. abdominal pain RADIATION DOSAGE (If Supplied By Facility): CTDIvol = ( 14.15 ) mGy, DLP = ( 742.51 ) mGycm TECHNIQUE: Transaxial images were obtained from the dome of the diaphragm to the symphysis pubis without oral contrast, and without intravenous contrast. Sagittal and coronal images were reconstructed. Individualized dose optimization techniques were used for this CT. COMPARISON: February 13, 2021. FINDINGS: The visualized lung bases are unremarkable. The visualized portions of the heart are within normal limits. Normal liver. Normal gallbladder and extrahepatic biliary system. Normal spleen. Normal pancreas. Normal bilateral adrenal glands. Normal right kidney. Up to 2 mm stones in the left kidney. Normal visualized stomach. Normal small intestine. Normal colon. The appendix is visualized and appears normal. Normal abdominal aorta. Normal inferior vena cava. Normal retroperitoneum. Normal urinary bladder. Normal abdominal wall. Normal osseous structures. CT/Abdomen/Pelvis without Cont IMPRESSION: Nonobstructive left renal stones. No hydronephrosis. Electronically Signed: Yao Meng DO at 23:13 EDT Reading Location ID and State: [facility] / [place] Tel [phone], Service support ,
[2022-08-30] MEDS: Morphine 4 MG/ML Syringe IV (22:43)
[2022-08-30] MEDS: Potassium Chloride Oral Tablet 20 MEQ 40 MEQ PO (22:44)
[2022-08-30 22:49] VITALS: BP 135/89; PULSE 66
[2022-08-30 23:21] VITALS: BP 135/86; PULSE 58; RESP 16; TEMP 36.9
[2022-08-30] MEDS: Loperamide 2 MG Capsule 4 MG PO (23:25)
== END 2022-08-30 23:28 | disposition home or self-care (01) ==
PROVIDERS: Emergency Provider Emergency Medicine; PCP Nurse Practitioner Family; Visit Provider Emergency Medicine
DX: A08.4 Viral intestinal infection, unspecified (principal); F17.210 Nicotine dependence, cigarettes, uncomplicated
CPT/HCPCS: 74176; 80048; 85025; 96361; 96372; 96374; 96375; 99284; J7030; A4216; J2405

== ENCOUNTER 2022-09-07 13:26 | Inpatient (IN) | payer MEDICAID, SELFPAY ==
[2022-09-07 13:28] VITALS: BP 153/91; PULSE 121; RESP 20; TEMP 36.1; O2SAT 97; BMI 32.8
[2022-09-07 15:25] LABS: Absolute Lymphocyte Count 1.64 X10^3/uL (0.83-4.51); Absolute Neutrophil Count 9.3 X10^3/uL (2.0-7.7); Basophil# 0.06 X10^3/uL; Basophil% 0.5 % (0-1); Eosinophil# 0.15 X10^3/uL; Eosinophils% 1.3 % (0-5); Hematocrit 47.8 % (40-54); Hemoglobin 16.9 g/dL (13.0-16.5); Lymphocyte # 1.64 X10^3/ul (0.83-4.51); Lymphocyte % 13.9 % (19-41); Mean Corp Hgb Conc 35.4 g/dL (32-36); Mean Corpuscular Hgb 33.9 pg (27.0-32.0); Mean Platelet Vol. 9.3 fl (6.2-12.0); Monocyte# 0.53 X10^3/uL; Monocyte% 4.5 % (0-10); NRBC Flagged by Analyzer 0 % (0-5); Neutrophil # 9.34 X10^3/uL (2.7-7.7); Neutrophil % 79.5 % (47-70); Platelet Count 269 K/mm3 (150-450); RBC Distribution Width SD 42.2 fl (35.1-43.9); Red Blood Count 4.98 M/mm3 (4.6-6.2); White Blood Count 11.8 K/mm3 (4.4-11.0)
[2022-09-07 15:40] LABS: ALB/GLOB Ratio 1.1 RATIO (0.9-2.4); AST(SGOT) 12 U/L (15-37); Alanine Aminotransfer ALT/SGPT 23 U/L (16-61); Albumin, Serum 3.9 g/dL (3.2-5.0); Alkaline Phosphatase 89 U/L (45-117); Anion Gap 7 (5-15); BUN 15 mg/dL (7-18); BUN/Creat Ratio 13.9 RATIO (10-20); Calcium,Total 9.2 mg/dL (8.5-10.1); Chloride 110 mmol/L (98-107); Creatinine, Serum 1.08 mg/dL (0.70-1.30); EST Glomerular Filtration Rate 83 mL/min (>60); Est Glom Filt Rate - Afr Amer 100 mL/min (>60); Estimated Creatinine Clearance 101.68 ml/min; Globulin 3.6 g/dL (2.2-4.2); Glucose 130 mg/dL (74-106); Potassium 3.8 mmol/L (3.5-5.1); Protein, Total 7.5 g/dL (6.4-8.2); Sodium Level 142 mmol/L (136-145)
--- NOTE | 2022-09-07 15:42 | HP.PCM.HOS_ITS ---
HPI - General HPI Narrative MARIS FABIAN, is a 37 M who presents [facility] Medical History Back problem Caffeine abuse, continuous Chronic right shoulder pain Chronic thoracic back pain Kidney stones Lumbar radiculopathy, chronic Marijuana abuse Home Medications NK 09/07/22 [History Last Taken Unknown] Allergy/AdvReac Type Severity Reaction Status Date / Time No Known Allergies Allergy Verified 09/07/22 14:03 Family History (Updated 07/08/22 @ 13:01 by Toya Mancilla) Other Angina at rest Anxiety Colon cancer Depression Diabetes Hypertension Melanoma Myocardial infarction Surgical History History of colonoscopy Social History (Updated 07/08/22 @ 13:00 by Toya Mancilla) Smoking Status: Current every day smoker tobacco type: cigarettes alcohol intake: never substance use type: does not use what type of physical activity do you participate in: none Vital Signs Vital Signs Vital Signs: 09/07/22 13:28 Temperature 97 F L Temperature Source Temporal Pulse Rate 121 H Respiratory Rate 20 H Blood Pressure 153/91 H Blood Pressure Mean 111 Pulse Ox 97 Oxygen Delivery Method Room Air Weight Weight: 235 lb 3.732 oz Body Mass Index (BMI) 32.8 Results Lab / Micro Data Result Diagrams: 09/07/22 15:15 09/07/22 15:15 Labs: Laboratory Results - last 24 hr 09/07/22 15:15: WBC 11.8 H, RBC 4.98, Hgb 16.9 H, Hct 47.8, MCV 96.0 H, MCH 33.9 H, MCHC 35.4, RDW Std Deviation 42.2, RDW Coeff of Melisa 12.0, Plt Count 269, MPV 9.3, Immature Gran % (Auto) 0.300, Neut % (Auto) 79.5 H, Lymph % (Auto) 13.9 L, [place] % (Auto) 4.5, Eos % (Auto) 1.3, Baso % (Auto) 0.5, Absolute Neuts (auto) 9.3 H, Absolute Lymphs (auto) 1.64, Nucleated RBC % 0 09/07/22 15:15: Sodium 142, Potassium 3.8, Chloride 110 H, Carbon Dioxide 25.0, Anion Gap 7, BUN 15, Creatinine 1.08, Estim Creat Clear Calc 101.68, Est GFR (MDRD) Af Amer 100, Est GFR (MDRD) Non-Af 83, BUN/Creatinine Ratio 13.9, Glucose 130 H, Calcium 9.2, Total Bilirubin 1.20 H, AST 12 L, ALT 23, Alkaline Phosphatase 89, Total Protein 7.5, Albumin 3.9, Globulin 3.6, Albumin/Globulin Ratio 1.1
--- NOTE | 2022-09-07 15:42 | PCM.HP.STD ---
[facility] - General General Date of Admission: 09/07/22 Date of Service: 09/07/22 Chief Complaint: Oral opioid tablet dependence for 4 to 6 months. Wants detox. HPI Narrative MARIS FABIAN, is a 37 M with history of chronic pain attributes to bilateral kidney stones, spine, degenerative arthritis of shoulders, hips and knees came to ER for help for opioid detox. Patient states he takes 5 tablets fentanyl/oxycodone of 30 mg each for 5 to 6 months. He does not know the exact content but he stated that it is mixed with opioid medications. He denies IV use, alcohol, methamphetamine, Bath salt, ecstasy, benzodiazepines or other medications. Sometimes uses marijuana. He also smokes cigarettes a pack per day since age of 14 to 15 years. Sometimes he gets withdrawal symptoms like anxiety, restlessness, fidgety, could not sleep, constipation with opioids and then diarrhea. He also gets muscle cramps and pain. Patient stated he has multiple bilateral kidney stones and had required left ureteric stent and laser lithotripsy in [place] for 5 years ago. He has also seen Dr. Segovia for pain management. In ED vitals shows heart rate 121, respiratory rate 20 blood pressure 153/91. Labs were reviewed and discussed in assessment plan. Past medical history: PTSD, chronic pain use besides mentioned below. Social history: Patient has ex-. He has 2 children lives with her mother. Rest substance use history as described above. Family history: He has both mother and father have psychiatric issues and chronic alcoholic. He does not know their exact psychiatric diagnosis. [facility] Medical History Back problem Caffeine abuse, continuous Chronic right shoulder pain Chronic thoracic back pain Kidney stones Lumbar radiculopathy, chronic Marijuana abuse Home Medications NK 09/07/22 [History Last Taken Unknown] Allergy/AdvReac Type Severity Reaction Status Date / Time No Known Allergies Allergy Verified 09/07/22 16:07 Family History Other Angina at rest Anxiety Colon cancer Depression Diabetes Hypertension Melanoma Myocardial infarction Surgical History History of colonoscopy Social History Smoking Status: Current every day smoker tobacco type: cigarettes alcohol intake: never substance use type: does not use what type of physical activity do you participate in: none ROS ROS Narrative Constitutional: Reports fatigue and weakness. No fever. Chronic pain HEENT: Reports systems reviewed and no addt'l complaints, except as documented Respiratory/Chest: No acute shortness of breath or respiratory distress or wheezing. CVS: No chest pain pressure or tightness. Gastrointestinal: Denies coffee ground emesis, hematemesis or vomiting Genitourinary: States kidney stone pain. Denies burning urination or new urinary tract symptoms Musculoskeletal: Chronic back pain, shoulder, knee and hip pains. Denies acute joint pain or limited range of motion. No acute injury Neurologic: Denies seizure-like symptoms. skin: No ulcer. No rash Endocrinology: No diabetes melitis history. Reports systems reviewed and no addt'l complaints, except as documented Hematologic/Lymphatic: Reports systems reviewed and no addt'l complaints, except as documented Rest 14 ROS are negative except as mentioned in HPI Vital Signs Vital Signs Vital Signs: 09/07/22 13:28 Temperature 97 F L Temperature Source Temporal Pulse Rate 121 H Respiratory Rate 20 H Blood Pressure 153/91 H Blood Pressure Mean 111 Pulse Ox 97 Oxygen Delivery Method Room Air Weight Weight: 235 lb 3.732 oz Body Mass Index (BMI) 32.8 Physical Exam Narrative Physical exam General: Alert, Oriented x3, Cooperative HEENT: Atraumatic, PERRLA, EOMI, Normocephalic Oral: Oral mucosa moist. No Gingival or Mucosal Lesions/ Ulcerations Neck: Supple, No JVD, Negative Carotid Bruits Lungs: Air entry diminished in bilateral lung bases. No crepitation/rhonchi Cardiovascular: Regular rate, Regular Rhythm, Normal S1, Normal S2, No murmurs Abdomen: Bowel Sounds Present, Soft, Non Tender, Non-Distended : No renal angle tenderness. No dysuria or new LUTS no suprapubic tenderness. Extremities: No edema, Capillary Refill Less than 3 Seconds Skin: No rashes, No breakdown Musculoskeletal: Mild tenderness over lumbar spine and paraspinal muscles, nonspecific. No Tenderness to Palpation of peripheral joints or Extremities Neurological: Cranial nerves II-XII grossly intact, DTR 2+/4 and Symmetrical, Neuro grossly intact Psych/Mental Status: Flat affect, pain medication dependence Results Lab / Micro Data Result Diagrams: 09/07/22 15:15 09/07/22 15:15 Labs: Laboratory Results - last 24 hr 09/07/22 15:15: WBC 11.8 H, RBC 4.98, Hgb 16.9 H, Hct 47.8, MCV 96.0 H, MCH 33.9 H, MCHC 35.4, RDW Std Deviation 42.2, RDW Coeff of Melisa 12.0, Plt Count 269, MPV 9.3, Immature Gran % (Auto) 0.300, Neut % (Auto) 79.5 H, Lymph % (Auto) 13.9 L, [place] % (Auto) 4.5, Eos % (Auto) 1.3, Baso % (Auto) 0.5, Absolute Neuts (auto) 9.3 H, Absolute Lymphs (auto) 1.64, Nucleated RBC % 0 09/07/22 15:15: Sodium 142, Potassium 3.8, Chloride 110 H, Carbon Dioxide 25.0, Anion Gap 7, BUN 15, Creatinine 1.08, Estim Creat Clear Calc 101.68, Est GFR (MDRD) Af Amer 100, Est GFR (MDRD) Non-Af 83, BUN/Creatinine Ratio 13.9, Glucose 130 H, Calcium 9.2, Total Bilirubin 1.20 H, AST 12 L, ALT 23, Alkaline Phosphatase 89, Total Protein 7.5, Albumin 3.9, Globulin 3.6, Albumin/Globulin Ratio 1.1 Assessment & Plan Assessment/Plan (1) Acute opioid withdrawal: PLAN: Plan This 77-year-old gentleman being admitted for opioid detox. 1. Acute opioid withdrawal syndrome with history of chronic use disorder,, dependence and tolerance on opioid pain medications: Patient is being admitted on [facility] floor. The patient is started on buprenorphine along with other adjunctive medications as needed for medical stabilization as per order set of opioid withdrawal syndrome.Patient also on trazodone, hydroxyzine, gabapentin as needed ordered. tactical air control party manager consult. Lab work reviewed. Mild leukocytosis 11.8 thousand, nonspecific. No left shift. Neutrophils 79.5%. No fever or signs of infection. Electrolytes in normal range except chloride 110. Kidney function normal BUN/creatinine 15/1.08. PT/INR ordered BP elevated probably due to substance use. Monitor BP. Need outpatient home BP monitoring or ambulatory BP monitoring to diagnose hypertension. 2. Chronic pain on shoulders knees and lumbar spine: Patient attributes to the loss of cartilage or joint but will need outpatient orthopedic clinic to corroborate that whether he is speaking truth or a structural disorder of musculoskeletal system 3. Chronic kidney pain with history of bilateral kidney stones, laser lithotripsy and ureteric stent: Follow-up urologist as an outpatient. He used to see urologist in [place]. 4. Psychiatric diagnosis: PTSD and substance use dependence: 180 tactical air control party manager consult. Follow-up psychiatrist as an outpatient. 5. Hyperglycemia: Glucose 130 milligrams per deciliter. A1c ordered for tomorrow AM. VTE prophylaxis low risk. Early ambulation encouraged. Living will/advanced directive/end of life care: Patient does not have living will or advanced directive. He does not have anyone next of kin. After discussion of benefits/risks procedures involved with full code, DNR CC arrest and DNR CC, the patient opted for full code. Patient does want artificial life support including intubation, tube feed, ventilator and/chest compression, central venous catheter, vasopressor and DC shock if needed Charges/Coding Visit Charges Inpatient E&M: 02761 Init Hosp L3 Procedures Hospitalists Procedures: 24774 Advncd Care Plan 30 Min
[2022-09-07] MEDS: Ondansetron 4 MG/2 ML Vial IV (16:10)
[2022-09-07 16:13] VITALS: BP 119/75; PULSE 67; PULSE 77; RESP 18; TEMP 36.7; O2SAT 98
--- NOTE | 2022-09-07 16:13 | CM.ED ---
Social Work Referral Source: case find Referral Reason: CHRISTIE LAY met with patient and introduced herself and role as [facility] Facility Maintenance Mechanic. Patient lying in hospital bed and agreeable to speak with social work program coordinator. SW inquired about patient's AOD use as well as knowledge of [facility] program. Patient explained he was been struggling with pain management and was buying what he thought was perocets off the street, however, they had fentanyl in them. Patient reports taking those pills for a couple of months. SW provided emotional support and reviewed [facility] rules including it being a voluntary program, personal belongings being locked up as well as meeting with detox coordinator to discuss aftercare and discharge planning. Patient reports understanding and has no questions at this time. ALIREZA updated Latonya regarding patient being admitted. Plan: JONATHAN Ward
[2022-09-07 16:23] VITALS: BMI 28.0
[2022-09-07 16:28] LABS: Prothrombin Time (Protime)PT. 12.8 SECONDS (11.7-14.9)
[2022-09-07 16:38] VITALS: BP 119/84; PULSE 64; RESP 12; TEMP 36.9; O2SAT 93
--- NOTE | 2022-09-07 17:36 | EX.ED.DYSGE1 ---
HPI History of Present Illness Chief Complaint: Substance Abuse Narrative Narrative: Patient is a 37-year-old male who is presenting to the ER today with chief complaint of wanting detox for fentanyl use. Patient states that he is been using opiates and fentanyl for the past 3 years. Patient's been using more fentanyl for the past 6 months to a year. Patient started using opiates 3 years ago when he became dependent on them. Patient has a history of kidney stones, patient says that he was using opiates for kidney stones, then he was using it to also self treat depression and anxiety. Patient has been told that he was diagnosed with bipolar in the past, however he is also been admitted to psychiatric facility in [place] after he was diagnosed with bipolar. The psychiatrist told me that he did not have bipolar, he had more posttraumatic stress secondary from multiple childhood social issues along with issues with his ex-. Patient does smoke 1 pack of cigarettes a day, no alcohol use. Patient uses no other illicit drugs. Patient takes no psychiatric medications. Patient does not believe that he does have depression, anxiety or bipolar or schizophrenia. Despite being diagnosed with bipolar and schizophrenia in the past, the last psychiatrist told him that it was more secondary to posttraumatic stress disorder. Patient takes no medications. Patient has no PCP, has no medical insurance. Patient says that he switched to fentanyl pills approximately 6 months ago. Patient does not snort them or use IV injection. 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 Patient took 4-30 mg fentanyl tablets prior to arrival, this was approximate 1 PM. Patient says that he did not get any type of high and did not feel anything from the fentanyl that he took prior to arrival. Patient states that he normally takes approximately 5-30 mg fentanyl tablets a day on average. Patient has never overdosed 3 had a come to emergency room before secondary to opiate use. Patient is not suicidal homicidal. Patient is not hallucinating, no delirium. Patient wants to be admitted for detox. Patient feels dehydrated, otherwise has no other medical complaints at this time. He has no headache or neck pain. No chest pain or shortness of breath. Patient does feel dehydrated. Positive nausea, no vomiting. Patient does have mild nausea, does feel slightly shaky, but no other withdrawal symptoms [facility] Medical History (Updated 09/07/22 @ 17:[address] Melchor Pay, DO) Anxiety Back problem Bipolar disorder Caffeine abuse, continuous Chronic pain Chronic right shoulder pain Chronic thoracic back pain Depression Kidney stones Lumbar radiculopathy, chronic Marijuana abuse Schizophrenia Smoker Substance abuse Home Medications NK 09/07/22 [History Last Taken Unknown] Allergy/AdvReac Type Severity Reaction Status Date / Time No Known Allergies Allergy Verified 09/07/22 16:07 Family History Other Angina at rest Anxiety Colon cancer Depression Diabetes Hypertension Melanoma Myocardial infarction Surgical History History of colonoscopy Social History Smoking Status: Current every day smoker tobacco type: cigarettes alcohol intake: never substance use type: does not use what type of physical activity do you participate in: none ROS ROS ED ROS Narrative REVIEW OF SYSTEMS: Unless otherwise stated in this report the patient's positive and negative responses for review of systems for constitutional, eyes, ENT, cardiovascular, respiratory, gastrointestinal, neurological, , musculoskeletal, and integument systems and related systems to the presenting problem are either stated in the history of present illness or were not pertinent or were negative for the symptoms and/or complaints related to the presenting medical problem. EXAM Physical Exam Narrative Exam Narrative: Vital signs reviewed and patient is not hypoxic. General: The patient appears well and in no apparent distress. Patient is resting comfortably on cart. Not toxic, lethargic, or listless. Skin: Warm, clammy, not diaphoretic,, no pallor noted. There is no rash noted. Multiple tattoos, no secondary signs of infection. Patient has no signs of track [place], abscesses, or any skin infection. Head: Normocephalic, atraumatic Eye: Normal conjunctiva, no drainage, EOMI. PERRL. Pupils are 3/2, equal, bilateral. Ears, Nose, Mouth, and Throat: oral mucosa is moist. Nares patent. Mouth without vesicles. Cardiovascular: Regular Rate and Rhythm, no murmurs, gallops, or rubs Respiratory: Patient is in no distress, no accessory muscle use, lungs are clear to auscultation, no wheezing, rales or rhonchi Back: non-tender, no CVA tenderness bilaterally to percussion. NO CTLS midline or paraspinal tenderness to palpation. GI: Soft, no tenderness to palpation, no masses appreciated. No rebound, guarding, or rigidity noted. Musculoskeletal: The patient has full range of motion of all extremities and joints with no difficulty. Patient has no motor, no sensory deficits. Neurological: A&O x4, normal speech, no focal neurological deficits. Psychiatric: Cooperative Const Vital Signs: 09/07/22 13:28 Temperature 97 F L Temperature Source Temporal Pulse Rate 121 H Respiratory Rate 20 H Blood Pressure 153/91 H Blood Pressure Mean 111 Pulse Ox 97 Oxygen Delivery Method Room Air MDM MDM MDM Narrative Medical decision making narrative: Patient will be admitted to Dr. Ocasio. Patient had IV established, patient was given 1 L of IV fluid along with Zofran. Patient was tachycardic in the 120s when initially arrived, after 1 L of IV fluids, patient's heart rate was in the 60s. patient will be admitted for detox. Patient is not suicidal, homicidal, not hallucinating, not delirious. Patient is very thankful for help. Lab Data Labs: Laboratory Results - last 24 hr 09/07/22 09/07/22 09/07/22 15:15 15:15 15:15 WBC 11.8 H RBC 4.98 Hgb 16.9 H Hct 47.8 MCV 96.0 H MCH 33.9 H MCHC 35.4 RDW Std Deviation 42.2 RDW Coeff of Melisa 12.0 Plt Count 269 MPV 9.3 Immature Gran % (Auto) 0.300 Neut % (Auto) 79.5 H Lymph % (Auto) 13.9 L [place] % (Auto) 4.5 Eos % (Auto) 1.3 Baso % (Auto) 0.5 Absolute Neuts (auto) 9.3 H Absolute Lymphs (auto) 1.64 Nucleated RBC % 0 PT INR Sodium 142 Potassium 3.8 Chloride 110 H Carbon Dioxide 25.0 Anion Gap 7 BUN 15 Creatinine 1.08 Estim Creat Clear Calc 101.68 Est GFR (MDRD) Af Amer 100 Est GFR (MDRD) Non-Af 83 BUN/Creatinine Ratio 13.9 Glucose 130 H Calcium 9.2 Total Bilirubin 1.20 H AST 12 L ALT 23 Alkaline Phosphatase 89 Total Protein 7.5 Albumin 3.9 Globulin 3.6 Albumin/Globulin Ratio 1.1 Ethyl Alcohol 5.0 09/07/22 15:15 WBC RBC Hgb Hct MCV MCH MCHC RDW Std Deviation RDW Coeff of Melisa Plt Count MPV Immature Gran % (Auto) Neut % (Auto) Lymph % (Auto) [place] % (Auto) Eos % (Auto) Baso % (Auto) Absolute Neuts (auto) Absolute Lymphs (auto) Nucleated RBC % PT 12.8 INR 1.0 Sodium Potassium Chloride Carbon Dioxide Anion Gap BUN Creatinine Estim Creat Clear Calc Est GFR (MDRD) Af Amer Est GFR (MDRD) Non-Af BUN/Creatinine Ratio Glucose Calcium Total Bilirubin AST ALT Alkaline Phosphatase Total Protein Albumin Globulin Albumin/Globulin Ratio Ethyl Alcohol Discharge Plan Dx/Rx/DC Orders Clinical Impression: Opioid dependence, Tobacco abuse Disposition Disposition: Acute Care Hospital [facility] Discharge Date/Time: 09/07/22 16:19
[2022-09-07 18:21] LABS: Amphetamine Urine VISTA NEGATIVE (<1000 ng/mL); Barbiturate Urine VISTA NEGATIVE (< 200 ng/mL); Benzodiazepine Urine VISTA NEGATIVE (< 200 ng/mL); Cocaine Urine VISTA NEGATIVE (< 300 ng/mL); Ecstacy Urine VISTA NEGATIVE (< 500 ng/mL); Methadone Urine VISTA NEGATIVE (< 300 ng/mL); PCP Urine VISTA NEGATIVE (< 25 ng/mL); THC Urine VISTA POSITIVE (< 50 ng/mL); Vista UDS pH Range 6
[2022-09-07] MEDS: Gabapentin 300 MG Capsule PO (20:27)
[2022-09-07] MEDS: Ibuprofen 600 MG Tablet PO (20:27)
[2022-09-07] MEDS: Dicyclomine 10 MG Capsule 20 MG PO (20:27)
[2022-09-07] MEDS: Buprenorphine HCl 2 MG TAB.SUBL SL (20:28)
[2022-09-07 22:00] VITALS: BP 127/81; PULSE 70
[2022-09-07] MEDS: Acetaminophen 500 MG Tablet PO (22:00)
[2022-09-07] MEDS: cloNIDine HCl 0.1 MG Tablet PO (22:00)
[2022-09-07] MEDS: traZODone 100 MG Tablet PO (22:05)
[2022-09-08] MEDS: Buprenorphine HCl 2 MG TAB.SUBL SL ×3 (03:58→20:17)
[2022-09-08 04:00] VITALS: BP 117/80; PULSE 55; RESP 14; TEMP 36.2; O2SAT 100
--- NOTE | 2022-09-08 07:35 | PN.HOSP_ITS ---
Reason for Visit Reason for Visit: Diagnoses Opioid use, unspecified with withdrawal (09/07/22) Subjective Subjective Feeling better. Tried to do this as home. Never had tried quitting before. Objective Data Objective Data Vital Signs: Vital Signs Temp Pulse Resp BP Pulse Ox O2 Del Method 36.2 C L 55 L 14 117/80 100 Room Air 09/08/22 04:00 09/08/22 04:00 09/08/22 04:00 09/08/22 04:00 09/08/22 04:00 09/08/22 04:00 Oxygen Delivery Method Room Air Weight: 91.2 kg Body Mass Index (BMI) 28.0 Intake & Output: Intake and Output for Last 24 Hours 09/06/22 09/07/22 09/08/22 23:59 23:59 23:59 Intake Total 650 / 650 Balance 650 / 650 Lab / Micro Data Result Diagrams: 09/07/22 15:15 09/07/22 15:15 Labs: Laboratory Results - last 24 hr 09/07/22 15:15: WBC 11.8 H, RBC 4.98, Hgb 16.9 H, Hct 47.8, MCV 96.0 H, MCH 33.9 H, MCHC 35.4, RDW Std Deviation 42.2, RDW Coeff of Melisa 12.0, Plt Count 269, MPV 9.3, Immature Gran % (Auto) 0.300, Neut % (Auto) 79.5 H, Lymph % (Auto) 13.9 L, [place] % (Auto) 4.5, Eos % (Auto) 1.3, Baso % (Auto) 0.5, Absolute Neuts (auto) 9.3 H, Absolute Lymphs (auto) 1.64, Nucleated RBC % 0 09/07/22 15:15: Sodium 142, Potassium 3.8, Chloride 110 H, Carbon Dioxide 25.0, Anion Gap 7, BUN 15, Creatinine 1.08, Estim Creat Clear Calc 101.68, Est GFR (MDRD) Af Amer 100, Est GFR (MDRD) Non-Af 83, BUN/Creatinine Ratio 13.9, Glucose 130 H, Calcium 9.2, Total Bilirubin 1.20 H, AST 12 L, ALT 23, Alkaline Phosphatase 89, Total Protein 7.5, Albumin 3.9, Globulin 3.6, Albumin/Globulin Ratio 1.1 09/07/22 15:15: Ethyl Alcohol 5.0 09/07/22 15:15: PT 12.8, INR 1.0 09/07/22 17:25: Urine Opiates Screen POSITIVE H, Urine Methadone Screen NEGATIVE, Ur Barbiturates Screen NEGATIVE, Ur Phencyclidine Scrn NEGATIVE, Ur Amphetamines Screen NEGATIVE, MDMA (Ecstasy) Screen NEGATIVE, U Benzodiazepines Scrn NEGATIVE, Urine Cocaine Screen NEGATIVE, U Cannabinoids Screen POSITIVE H, Ur Drug Screen Comment Physical Exam Const alert and no apparent distress HEENT head/scalp atraumatic and moist oral mucous membranes Resp normal respiratory effort and no retractions Cardio regular rate and regular rhythm Assessment & Plan Assessment/Plan (1) Acute opioid withdrawal: PLAN: Continue buprenorphine taper Continue other supportive medications. Addiction med to see and develop discharge plan with the patient. PLAN: Plan Chronic conditions: * Chronic pain on shoulders knees and lumbar spine: legitimate complaint v malingering. * bilateral kidney stones, laser lithotripsy and ureteric stent: Follow-up urologist as an outpatient. He used to see urologist in [place]. * Psychiatric diagnosis: PTSD and substance use dependence: 180 field marketing manager consult. Follow-up psychiatrist as an outpatient. * Hyperglycemia: Glucose 130 milligrams per deciliter. A1c ordered for tomorrow AM. VTE prophylaxis low risk. Early ambulation encouraged. Full Code Charges/Coding Visit Charges Inpatient E&M: 08233 Subs Hosp L1
[2022-09-08] MEDS: Gabapentin 300 MG Capsule PO ×2 (08:47→18:40)
[2022-09-08] MEDS: Ibuprofen 600 MG Tablet PO (08:48)
[2022-09-08] MEDS: cloNIDine HCl 0.1 MG Tablet PO ×2 (08:48→18:40)
[2022-09-08 10:40] VITALS: BP 135/77; PULSE 67; RESP 16; TEMP 36.6; O2SAT 100
--- NOTE | 2022-09-08 11:20 | CASEMGMT ---
Sw consult for SDOH. Sw met with patient, introduced self and explained sw role during current admission. Sw reviewed SDOH with patient. Sw offered to provide additional information on resources that may be beneficial for patient at this time (pt indicated that sometimes family/ friends insult or talk down to him, and sometimes family/ friends scream and curse at him) however patient denied need at this time. Eddie Fitch, PSYCHOLOGY FELLOW, DIRECTOR PUBLIC
--- NOTE | 2022-09-08 12:15 | ADDICTION ---
This screen writer met with PT to conduct ASAM, MSE, AUDIT assessments and to plan for d/c. PT A+Ox4 and participated actively. All assessments completed and placed in PT's chart. PT plans to f/u with individual counselor at [facility] in [place] for follow-up counseling services. PT did not indicate a need for transportation post d/c from [facility].
[2022-09-08] MEDS: Methocarbamol 750 MG Tablet 1500 MG PO ×2 (12:27→18:40)
[2022-09-08 14:40] VITALS: BP 133/79; PULSE 62; RESP 16; TEMP 37; O2SAT 99
[2022-09-08 20:15] VITALS: BP 127/82; PULSE 60; RESP 14; TEMP 36.7; O2SAT 99
[2022-09-08] MEDS: Acetaminophen 500 MG Tablet PO (20:15)
[2022-09-08] MEDS: Senna Tablet 2 TABLET PO (20:16)
[2022-09-08] MEDS: Dicyclomine 10 MG Capsule 20 MG PO (20:16)
[2022-09-08] MEDS: traZODone 100 MG Tablet PO (20:16)
--- NOTE | 2022-09-08 21:12 | NURSING ---
Addendum entered by Hina Bean 09/09/22 10:41: Note entered on wrong patient Original Note: dr castelan returned msg, no new orders
[2022-09-09] MEDS: Methocarbamol 750 MG Tablet 1500 MG PO ×3 (03:09→20:40)
[2022-09-09] MEDS: hydrOXYzine PAM 25 MG Capsule 50 MG PO ×3 (03:09→18:16)
[2022-09-09] MEDS: Ibuprofen 600 MG Tablet PO ×2 (03:09→12:26)
[2022-09-09] MEDS: Buprenorphine HCl 2 MG TAB.SUBL SL ×3 (03:10→20:40)
[2022-09-09 08:14] VITALS: BP 120/76; PULSE 55; RESP 16; TEMP 36.7; O2SAT 97
[2022-09-09] MEDS: Acetaminophen 500 MG Tablet PO (08:19)
[2022-09-09] MEDS: cloNIDine HCl 0.1 MG Tablet PO ×2 (08:19→15:51)
[2022-09-09] MEDS: Gabapentin 300 MG Capsule PO ×2 (08:20→20:40)
--- NOTE | 2022-09-09 13:11 | PCM.PN.HOSP ---
Reason for Visit Reason for Visit: Diagnoses Opioid use, unspecified with withdrawal (09/07/22) Subjective Subjective Patient still feeling somewhat generally achy and shaky but is feeling better than he had been. Agreeable to DC after a.m. dose of Subutex tomorrow if doing well Objective Data Objective Data Vital Signs: Vital Signs Temp Pulse Resp BP Pulse Ox O2 Del Method 98.0 F 55 L 16 120/76 97 Room Air 09/09/22 08:14 09/09/22 08:14 09/09/22 08:14 09/09/22 08:14 09/09/22 08:14 09/09/22 08:14 Oxygen Delivery Method Room Air Weight: 91.2 kg Body Mass Index (BMI) 28.0 Intake & Output: Intake and Output for Last 24 Hours 09/07/22 09/08/22 09/09/22 23:59 23:59 23:59 Intake Total 650 / 650 900 / 900 300 / 300 Balance 650 / 650 900 / 900 300 / 300 Medical Nutrition Assessment Dietitian: Malnutrition Criteria Met Start: 09/08/22 16:25 Freq: Status: Active Protocol: Document 09/08/22 16:25 LO (Rec: 09/08/22 16:25 [id number]) Nutrition Malnutrition Evidence of Malnutrition Exists Yes Malnutrition (severe): Chronic Evidenced By Suboptimal Energy Intake ( Severe),Weight Loss (Severe) Clinical Problem Chronic Disease or Condition Related Malnutrition Etiology severe related to opioid abuse Signs/Symptoms as evidenced by <75% PO intake of estimated energy needs for 2 months and 44.2lbs (18%) weight loss in 2 months Status Active Problem Recommendation Dietitian Recommendations/Changes Continue Regular diet with snacks 3x daily to promote stable weight. Will assess need for ONS at follow-up. Lab / Micro Data Result Diagrams: 09/07/22 15:15 09/07/22 15:15 Physical Exam Narrative General: Alert, oriented HEENT: Atraumatic, normocephalic Eyes: Anicteric, normal conjunctiva, extraocular movements grossly intact Neck: Supple Respiratory: Clear to auscultation bilaterally, normal respiratory effort Cardiovascular: Regular rate and rhythm GI: Soft, nontender, nondistended Extremities: No edema Musculoskeletal: Moving all extremities Neuro: No overt focal neurological deficits Skin: No rashes appreciated Psych: Cooperative Assessment & Plan Assessment/Plan (1) Acute opioid withdrawal: PLAN: Continue buprenorphine taper Continue other supportive medications. Addiction med to see and develop discharge plan with the patient. PLAN: Plan Chronic conditions: Chronic pain on shoulders knees and lumbar spine: legitimate complaint v malingering-did not voice any complaints 09/09 bilateral kidney stones, laser lithotripsy and ureteric stent: Follow-up urologist as an outpatient. He used to see urologist in [place]. Psychiatric diagnosis: PTSD and substance use dependence: 180 irrigation district manager consult. Follow-up psychiatrist as an outpatient. VTE prophylaxis low risk. Early ambulation encouraged. Full Code Charges/Coding Visit Charges Inpatient E&M: 56196 Subs Hosp L2
[2022-09-09 15:44] VITALS: BP 130/75; PULSE 65; RESP 16; TEMP 36.4; O2SAT 97
[2022-09-09] MEDS: Ondansetron 8 MG Tablet PO (18:10)
[2022-09-09 20:37] VITALS: BP 130/76; PULSE 58; RESP 18; TEMP 36.6; O2SAT 98
[2022-09-09] MEDS: traZODone 100 MG Tablet PO (20:40)
[2022-09-10 00:26] VITALS: BP 128/74; PULSE 60; RESP 18; TEMP 36.5; O2SAT 96
[2022-09-10] MEDS: cloNIDine HCl 0.1 MG Tablet PO (00:27)
[2022-09-10 06:24] VITALS: BP 127/79; PULSE 57; RESP 18; TEMP 36.5; O2SAT 98
[2022-09-10 08:17] VITALS: BP 126/82; PULSE 55; RESP 16; TEMP 36.8; O2SAT 95
--- NOTE | 2022-09-10 08:19 | DCINST_ITS ---
Discharge Instructions Diet Discharge Diet: No restrictions Activity Discharge Activity: Return to Normal Activity Follow Up Care Test Results: Test results from this visit will be discussed in further detail at your follow- up appointment, if applicable. Discharge Plan Admission Admit Date/Time: 09/07/22 15:43 Primary Reason for Your Visit: Opioid detox Attending Provider: Yulisa Biggs Primary Care Provider: Hector Segovia NP Consulting Providers: Josemanuel Ocasio ; Ji Hogan Instructions Patient Instructions: Addiction: Getting Help, Addiction: Your Treatment Options, Addiction Recovery Counseling Additional Instructions / Restrictions: DISCHARGE INSTRUCTIONS PLEASE READ *Please take this with you to your next doctors appointment* -Please follow-up with with an [facility] in [place] upon discharge for counseling/addiction services -Please follow-up with urology upon discharge for kidney stones. Please call their office to schedule and appointment upon discharge. -You may benefit from following with psychiatry as an outpatient for any under lying depression and anxiety, recommend calling to schedule appointment -Please call your primary care provider's office upon discharge to schedule a hospital follow up within 1 week. -For any concerning signs or symptoms please call 911 or proceed to the nearest emergency department Discharge Orders/Prescriptions Prescriptions: No Action NK Referrals / Follow Up: Anurag Brown MD [Med Staff - Active Staff] - See Referral Note (Please follow-up with urology upon discharge for kidney stones) Jon Howell DO [Med Staff - Cutlery Grinder] - See Referral Note (Would recommend following up with psychiatry upon discharge) Hector Segovia NP, EMERGENCY DEPARTMENT COORDINATOR-C [Primary Care Provider] - Within 1 Week Disposition Disposition (needs filled in before D/C Order can be placed): Home, Self Care
--- NOTE | 2022-09-10 08:20 | DS.PCM_ITS ---
Providers Date of Admission: 09/07/22 Date of Discharge: 09/10/22 Primary Care Physician: Hector Segovia, ANTHONY-C Reason For Visit: ACUTE OPOID WITHDRAWAL SYNDROME Diagnosis Discharge Diagnosis (1) Acute opioid withdrawal: Status: Acute Code(s): F11.93 - Opioid use, unspecified with withdrawal Plan #Chronic pain on shoulders knees and lumbar spine #bilateral kidney stones, laser lithotripsy and ureteric stent #PTSD and substance use dependence Medications at Discharge Home Medications NK 09/07/22 Hospital Course Summary of Care Provided Minutes Spent on Discharge: 31 Hospital Course: MARIS FABIAN, is a 37 M with history of chronic pain attributes to bilateral kidney stones, spine, degenerative arthritis of shoulders, hips and knees came to ER for help for opioid detox 09/07/22. Takes fentanly and oxy for 5-6 months. Was admitted and completed Subutex taper and was feeling much better on the day of discharge with no complaints. Discharged to follow-up outpatient for counseling/addiction services with [facility] in [place] Physical Exam Narrative General: Alert, oriented, no apparent distress HEENT: Atraumatic, normocephalic Eyes: extraocular movements grossly intact Neck: Supple Respiratory: normal respiratory effort Cardiovascular: no edema appreciated GI: nondistended Extremities: Moving all extremities Neuro: No overt focal neurological deficits Psych: Cooperative Medical Records Data Medical Nutrition Assessment Dietitian: Malnutrition Criteria Met Start: 09/08/22 16:25 Freq: Status: Active Protocol: Document 09/08/22 16:25 LO (Rec: 09/08/22 16:25 [id number]) Nutrition Malnutrition Evidence of Malnutrition Exists Yes Malnutrition (severe): Chronic Evidenced By Suboptimal Energy Intake ( Severe),Weight Loss (Severe) Clinical Problem Chronic Disease or Condition Related Malnutrition Etiology severe related to opioid abuse Signs/Symptoms as evidenced by <75% PO intake of estimated energy needs for 2 months and 44.2lbs (18%) weight loss in 2 months Status Active Problem Recommendation Dietitian Recommendations/Changes Continue Regular diet with snacks 3x daily to promote stable weight. Will assess need for ONS at follow-up. Weight / BMI Weight Weight: 91.2 kg Body Mass Index (BMI) 28.0 ABG / Lab / Microbiology Data Result Diagrams: 09/07/22 15:15 09/07/22 15:15 D/C Instructions Discharge Diet: No restrictions Meaningful Use Info Meaningful Use Diagnoses (Choose all that apply): None applicable Discharge Plan Admission Admit Date/Time: 09/07/22 15:43 Primary Reason for Your Visit: Opioid detox Attending Provider: Yulisa Biggs Primary Care Provider: Hector Segovia NP Consulting Providers: Josemanuel Ocasio ; Ji Hogan Instructions Patient Instructions: Addiction: Getting Help, Addiction: Your Treatment Options, Addiction Recovery Counseling Additional Instructions / Restrictions: DISCHARGE INSTRUCTIONS PLEASE READ *Please take this with you to your next doctors appointment* -Please follow-up with with an [facility] in [place] upon discharge for counseling/addiction services -Please follow-up with urology upon discharge for kidney stones. Please call their office to schedule and appointment upon discharge. -You may benefit from following with psychiatry as an outpatient for any underlying depression and anxiety, recommend calling to schedule appointment -Please call your primary care provider's office upon discharge to schedule a hospital follow up within 1 week. -For any concerning signs or symptoms please call 911 or proceed to the nearest emergency department Discharge Orders/Prescriptions Prescriptions: No Action NK Referrals / Follow Up: Anurag Brown MD [Med Staff - Active Staff] - See Referral Note (Please follow-up with urology upon discharge for kidney stones) Jon Howell DO [Med Staff - Water And Sewer Systems Supervisor] - See Referral Note (Would recommend following up with psychiatry upon discharge) Hector Segovia NP, MEDICAL GENETICS DIRECTOR-C [Primary Care Provider] - Within 1 Week Disposition Disposition (needs filled in before D/C Order can be placed): Home, Self Care Charges/Coding Visit Charges Inpatient E&M: 16574 Disch Hosp >30min
[2022-09-10] MEDS: Buprenorphine HCl 2 MG TAB.SUBL SL (08:24)
[2022-09-10] MEDS: hydrOXYzine PAM 25 MG Capsule 50 MG PO (08:24)
== END 2022-09-10 08:48 | disposition home or self-care (01) | DRG 773 ==
LOC: ED 15:09 → MS3 09-08 07:04
PROVIDERS: Admitting Provider Internal Medicine; Emergency Provider Emergency Medicine; PCP Nurse Practitioner Family; Visit Provider Internal Medicine
DX: F11.23 Opioid dependence with withdrawal (principal); E43 Unspecified severe protein-calorie malnutrition; F17.210 Nicotine dependence, cigarettes, uncomplicated; M16.0 Bilateral primary osteoarthritis of hip; M17.0 Bilateral primary osteoarthritis of knee; M19.011 Primary osteoarthritis, right shoulder; M19.012 Primary osteoarthritis, left shoulder; M54.16 Radiculopathy, lumbar region; F43.10 Post-traumatic stress disorder, unspecified; G89.29 Other chronic pain; N20.0 Calculus of kidney; R73.9 Hyperglycemia, unspecified; Z68.28 Body mass index [BMI] 28.0-28.9, adult; Z81.1 Family history of alcohol abuse and dependence; Z81.8 Family history of other mental and behavioral disorders
CPT/HCPCS: 36415; 80053; 80307; 82077; 85025; 85610; 97802; 99284; 99406; J7040; J2405

== ENCOUNTER 2022-12-14 11:42 | Emergency (ER) | payer MEDICAID, SELFPAY ==
[2022-12-14 11:43] VITALS: BP 138/88; PULSE 74; RESP 18; TEMP 36.6; O2SAT 98; BMI 34.2
--- NOTE | 2022-12-14 12:17 | EDS_ITS ---
HPI History of Present Illness Chief Complaint: Substance Abuse Informant: patient Narrative Narrative: 37-year-old male presenting to the emergency room seeking detoxification from opiates. Patient is a daily fentanyl user. He last went through detox a couple months ago. He states that as soon as he left the inpatient side he made a phone call and found out that his friend of an overdose. He states that last night his children's mother (whom he is from) informed him that if he continue to use he would lose visitation with the children. He asked work to take him off the schedule so that he could obtain rehab. He notes chronic pain in joints and low back. He denies any intravenous use. She denies any alcohol or tobacco use. He denies any chronic wounds or recent infections. Last use was just prior to arrival after he dropped his children off at school [facility] Medical History Acute opioid withdrawal Anxiety Back problem Bipolar disorder Caffeine abuse, continuous Chronic pain Chronic right shoulder pain Chronic thoracic back pain Depression Kidney stones Lumbar radiculopathy, chronic Marijuana abuse Schizophrenia Smoker Substance abuse Home Medications NK 09/07/22 [History Last Taken Unknown] Allergy/AdvReac Type Severity Reaction Status Date / Time No Known Allergies Allergy Verified 12/14/22 11:44 Family History Other Angina at rest Anxiety Colon cancer Depression Diabetes Hypertension Melanoma Myocardial infarction Surgical History History of colonoscopy Social History Smoking Status: Current every day smoker tobacco type: cigarettes alcohol intake: never substance use type: does not use what type of physical activity do you participate in: none ROS ROS ED Constitutional Constitutional ED: Denies chills or weight loss Eyes Eyes: Denies change in vision or diplopia ENT ENT ED: Denies ear pain, rhinorrhea or sore throat Cardiovascular Cardiovascular: Denies chest pain, orthopnea, palpitations or racing heartbeat Respiratory/Chest Respiratory/Chest: Denies cough, dyspnea or orthopnea Gastrointestinal Gastrointestinal: Denies abdominal pain, diarrhea, nausea or vomiting Genitourinary Genitourinary ED: Denies dysuria, hematuria or urinary frequency Musculoskeletal Musculoskeletal: Denies arthralgias or myalgias Integumentary Denies abscess or rash Neurologic Neurologic: Denies headache(s) or weakness Psychiatric Psychiatric: Denies anxiety, depression, suicidal ideation or suicidal thoughts Endocrine Endocrinology: Denies polydipsia, polyphagia or polyuria Allergic/Immunologic Allergic/Immunologic ED: Denies mouth swelling, tongue swelling or urticaria EXAM Physical Exam Const Vital Signs: 12/14/22 11:43 12/14/22 13:52 Temperature 97.8 F 97.1 F L Temperature Source Temporal Oral Pulse Rate 74 63 Respiratory Rate 18 16 Blood Pressure 138/88 H 142/96 H Blood Pressure Mean 104 111 Pulse Ox 98 100 Oxygen Delivery Method Room Air Room Air Positive well nourished and well developed General Appearance ED: well developed HEENT Reports normocephalic, head/scalp atraumatic and moist mucous membranes Eyes PERRL and EOMs intact bilaterally Neck no lymphadenopathy, supple and no JVD Resp normal respiratory effort and clear to auscultation bilaterally Cardio regular rate, regular rhythm and no murmurs GI normal to inspection, nondistended, normoactive bowel sounds and non-tender Palpation: soft Back/Spine no CVA tenderness and normal ROM Extremity normal to inspection General Extremety ED: Negative for edema General Extremity: Negative for edema Neuro oriented x3 and CN's II-XII intact bilaterally Sensorium / Orientation: alert Motor Exam: strength 5/5 throughout Psych mental status grossly normal Mood & Affect: Negative for depressed or tearful Skin no rashes or lesions noted and no wounds MDM MDM MDM Narrative Medical decision making narrative: Patient's toxicology was positive for methadone. He stated he was having significant withdrawal but only scored a 1 on on the withdrawal scale and this only a couple hours after using fentanyl. The patient was discussed with the hospitalist. Unfortunately there were no beds available for immediate hospital admission and the patient was advised that he may need to wait or be transferred to another facility if a bed was not going to be available. The patient decided that he would rather leave and has subsequently left the department. Lab Data Attestation: I reviewed the patient's lab results. Labs: Laboratory Results - last 24 hr 12/14/22 12/14/22 12:23 12:50 WBC 8.6 RBC 4.67 Hgb 15.3 Hct 46.6 MCV 99.8 H MCH 32.8 H MCHC 32.8 RDW Std Deviation 43.9 RDW Coeff of Melisa 11.9 Plt Count 183 MPV 9.5 Immature Gran % (Auto) 0.200 Neut % (Auto) 71.1 H Lymph % (Auto) 15.0 L [place] % (Auto) 7.2 Eos % (Auto) 6.0 H Baso % (Auto) 0.5 Absolute Neuts (auto) 6.1 Absolute Lymphs (auto) 1.29 Nucleated RBC % 0 Sodium 143 Potassium 3.7 Chloride 111 H Carbon Dioxide 28.0 Anion Gap 4 L BUN 16 Creatinine 0.93 Estim Creat Clear Calc 118.08 Est GFR (MDRD) Af Amer 118 Est GFR (MDRD) Non-Af 98 BUN/Creatinine Ratio 17.2 Glucose 122 H Calcium 8.5 Total Bilirubin 0.60 AST 8 L ALT 20 Alkaline Phosphatase 80 Total Protein 6.2 L Albumin 3.3 Globulin 2.9 Albumin/Globulin Ratio 1.1 Urine Opiates Screen NEGATIVE Urine Methadone Screen POSITIVE H Ur Barbiturates Screen NEGATIVE Ur Phencyclidine Scrn NEGATIVE Ur Amphetamines Screen NEGATIVE MDMA (Ecstasy) Screen NEGATIVE U Benzodiazepines Scrn NEGATIVE Urine Cocaine Screen NEGATIVE U Cannabinoids Screen NEGATIVE Ur Drug Screen Comment Ethyl Alcohol 4.0 Discharge Plan Triage Chief Complaint: Substance Abuse ED Provider: Wong Arauz Dx/Rx/DC Orders Clinical Impression: Opioid dependence Prescriptions: No Action NK Primary Care Provider: Hector Segovia NP Referrals: Care Physician,No Primary [Non-Staff] - Disposition Disposition: Against Medical Advice Discharge Date/Time: 12/14/22 15:06
[2022-12-14 12:35] LABS: Absolute Lymphocyte Count 1.29 X10^3/uL (0.83-4.51); Absolute Neutrophil Count 6.1 X10^3/uL (2.0-7.7); Basophil# 0.04 X10^3/uL; Basophil% 0.5 % (0-1); Eosinophil# 0.52 X10^3/uL; Hematocrit 46.6 % (40-54); Hemoglobin 15.3 g/dL (13.0-16.5); Lymphocyte # 1.29 X10^3/ul (0.83-4.51); Mean Corp Hgb Conc 32.8 g/dL (32-36); Mean Corpuscular Hgb 32.8 pg (27.0-32.0); Mean Corpuscular Volume 99.8 fL (80-94); Mean Platelet Vol. 9.5 fl (6.2-12.0); Monocyte# 0.62 X10^3/uL; Monocyte% 7.2 % (0-10); NRBC Flagged by Analyzer 0 % (0-5); Neutrophil # 6.13 X10^3/uL (2.7-7.7); Neutrophil % 71.1 % (47-70); Platelet Count 183 K/mm3 (150-450); RBC Distribution Width CV 11.9 % (11.6-14.6); RBC Distribution Width SD 43.9 fl (35.1-43.9); Red Blood Count 4.67 M/mm3 (4.6-6.2); White Blood Count 8.6 K/mm3 (4.4-11.0)
[2022-12-14 13:03] LABS: ALB/GLOB Ratio 1.1 RATIO (0.9-2.4); AST(SGOT) 8 U/L (15-37); Alanine Aminotransfer ALT/SGPT 20 U/L (16-61); Albumin, Serum 3.3 g/dL (3.2-5.0); Alkaline Phosphatase 80 U/L (45-117); Anion Gap 4 (5-15); BUN 16 mg/dL (7-18); BUN/Creat Ratio 17.2 RATIO (10-20); Calcium,Total 8.5 mg/dL (8.5-10.1); Chloride 111 mmol/L (98-107); Creatinine, Serum 0.93 mg/dL (0.70-1.30); EST Glomerular Filtration Rate 98 mL/min (>60); Est Glom Filt Rate - Afr Amer 118 mL/min (>60); Estimated Creatinine Clearance 118.08 ml/min; Globulin 2.9 g/dL (2.2-4.2); Glucose 122 mg/dL (74-106); Potassium 3.7 mmol/L (3.5-5.1); Protein, Total 6.2 g/dL (6.4-8.2); Sodium Level 143 mmol/L (136-145)
[2022-12-14 13:10] LABS: Amphetamine Urine VISTA NEGATIVE (<1000 ng/mL); Barbiturate Urine VISTA NEGATIVE (< 200 ng/mL); Benzodiazepine Urine VISTA NEGATIVE (< 200 ng/mL); Cocaine Urine VISTA NEGATIVE (< 300 ng/mL); Ecstacy Urine VISTA NEGATIVE (< 500 ng/mL); Methadone Urine VISTA POSITIVE (< 300 ng/mL); PCP Urine VISTA NEGATIVE (< 25 ng/mL); THC Urine VISTA NEGATIVE (< 50 ng/mL); Vista UDS pH Range 5
[2022-12-14 13:52] VITALS: BP 142/96; PULSE 63; RESP 16; TEMP 36.2; O2SAT 100
--- NOTE | 2022-12-14 14:56 | ED.RN ---
Patient is willing to go to a detox center outside of this facility due to lack of bed space. Charge and social service liaison aware and working on placement. Patient sitting in bed tapping foot, otherwise without issue.
--- NOTE | 2022-12-14 15:03 | ED.RN ---
Patient spoke with Jaimee through 180 treatment navigator and is going to [place] for detox. Patient is unwilling to stay for discharge paperwork and was ambulatory from dept., gait steady. EMD aware.
--- NOTE | 2022-12-14 22:13 | CM.ED ---
Social Work SW introduced self and role to patient. Pt is here for detox. SW was asked by charge nurse to discuss possibility of going to detox at another facility if placement can be found. SW explained that no beds are currently available so there would be a wait, only due to bed availability. SW offered to assist in finding another detox if patient is agreeable. Pt reluctant at first but then agreed due to wait time. SW contacted treatment navigator who asked to have patient call her for detox options. SW provided number and info to patient. Patient reported he was leaving to go to [place] for detox. Samantha Cedillo SUPERVISOR [employer], SNOW RANGER
== END 2022-12-14 15:06 | disposition left against medical advice (07) ==
PROVIDERS: Emergency Provider Emergency Medicine; PCP Nurse Practitioner Family; Visit Provider Emergency Medicine
DX: F11.20 Opioid dependence, uncomplicated (principal); G89.29 Other chronic pain; M54.50 Low back pain, unspecified
CPT/HCPCS: 80053; 80307; 82077; 85025; 99281; 99282

== ENCOUNTER 2022-12-15 08:13 | Emergency (ER) | payer MEDICAID, SELFPAY ==
[2022-12-15 08:14] VITALS: BP 127/95; PULSE 72; RESP 14; TEMP 36.4; O2SAT 100; BMI 32.3
--- NOTE | 2022-12-15 08:32 | EX.ED.DYSGE1 ---
HPI History of Present Illness Chief Complaint: Substance Abuse Narrative Narrative: Patient presents with wishes to go through opiate detox. He was seen yesterday and left since apparently there are no beds available and he did not want to go to any other facility. Today he is changing his mind and wants any kind of detox in any complaints. He uses fentanyl quite a bit every day and has not used since yesterday. He is feeling nauseated and feels quite anxious. [facility] Medical History Acute opioid withdrawal Anxiety Back problem Bipolar disorder Caffeine abuse, continuous Chronic pain Chronic right shoulder pain Chronic thoracic back pain Depression Kidney stones Lumbar radiculopathy, chronic Marijuana abuse Schizophrenia Smoker Substance abuse Home Medications NK 09/07/22 [History Last Taken Unknown] Allergy/AdvReac Type Severity Reaction Status Date / Time No Known Allergies Allergy Verified 12/15/22 08:14 Family History Other Angina at rest Anxiety Colon cancer Depression Diabetes Hypertension Melanoma Myocardial infarction Surgical History History of colonoscopy Social History Smoking Status: Current every day smoker tobacco type: cigarettes alcohol intake: never substance use type: does not use what type of physical activity do you participate in: none ROS ROS ED ROS Narrative Past medical history: Reviewed Medications: Reviewed Social history: Noncontributory Review of systems: All systems negative except as indicated General: No fever. Feels unwell. He feels anxious ENT: No upper airway congestion, normal voice Neck: No neck pain Cardiovascular: No chest pain Respiratory: No shortness of breath or cough Gastrointestinal: No abdominal pain. Some nausea. Genitourinary: No dysuria Musculoskeletal: Denies myalgias no difficulty with ambulation EXAM Physical Exam Narrative Exam Narrative: Physical exam General: Patient appears anxious he does not appear in significant distress. Head: Normocephalic, Atraumatic Eyes: Conjunctiva not pale ENT: Somewhat dry mucous membranes Neck: Supple, Nontender, No lymphadenopathy Cardiovascular: Regular rate, Regular rhythm Respiratory: No distress, CTA bilaterally Abdomen: Soft, Nontender, Nondistended Back: Nontender, Normal Inspection. Negative for: CVA tenderness Extremities: Nontender, No edema Skin: Normal color Const Vital Signs: 12/15/22 08:14 Temperature 97.6 F L Temperature Source Temporal Pulse Rate 72 Respiratory Rate 14 Blood Pressure 127/95 H Blood Pressure Mean 105 Pulse Ox 100 Oxygen Delivery Method Room Air MDM MDM MDM Narrative Medical decision making narrative: Patient is medically cleared. He has normal vitals he appears well. I will get social work about finding a place for him to detox. In the meantime he will receive Phenergan, Bentyl, clonidine. Discharge Plan Triage Chief Complaint: Substance Abuse ED Provider: Epifanio Schultz Dx/Rx/DC Orders Clinical Impression: Chronic thoracic back pain, Lumbar radiculopathy, chronic, Opioid dependence Prescriptions: No Action NK Primary Care Provider: Hector Segovia NP Referrals: Hector Segovia FITTER MACHINIST, FITTER MACHINIST-C [Primary Care Provider] -
[2022-12-15] MEDS: Dicyclomine 20 MG/2 ML Vial IM (08:38)
[2022-12-15] MEDS: 0.9% Normal Saline 1,000 ML 1000 ML IV (08:39)
[2022-12-15] MEDS: proMETHazine 25 MG/ML Syringe 12.5 MG IM (08:40)
[2022-12-15] MEDS: cloNIDine HCl 0.2 MG Tablet PO (09:25)
--- NOTE | 2022-12-15 10:33 | ED.RN ---
CASE MANAGEMENT IN TO SEE PT
--- NOTE | 2022-12-15 10:41 | ED.RN ---
THIS RN IN TO ROOM TO DC IV. PT VERY SLEEPY. THIS RN WAKES PT UP. ASKS PT WHY PT IS SO SLEEPY. PT STATES I DON'T FEEL WELL. THIS RN ASKS PT IF HE INJECTED THRU THE IV. PT HESITATES AND STATES NO. DR UMANZOR
--- NOTE | 2022-12-15 10:47 | CM.ED ---
Social Work Referral Source: MD Schultz Referral Reason: detox resources SW met with patient and introduced self and role as [facility] SW. Patient lying on hospital bed and agreeable to speak with SW. SW engaged patient in conversation regarding interest in detox program and AOD use. Patient reports fentanyl use and explained [facility] detox program was the only program that has been helpful to the patient. SW provided emotional support and discussed contacting the treatment navigator again to explore alternative detox options due to [facility] limited bed availability. Patient agreeable and denies needing assistance from SW. SW returned to patient's room to discuss outcome of conversation with treatment navigator. Patient reports detox options in [place] and [place]. Patient states he does not want to go to [place] as he has been there before and declines to go to [place] because it is too far away. SW attempted to assist patient in considering all options, patient continues to decline interest in going to [place] or [place] and states he will go home. SW encouraged the patient to contact the treatment navigator in the future to further discuss detox options. SW updated MD Schultz of conversation. Plan: d/c home, patient has treatment navigator contact information. Karmen ESPARZA, JONATHAN
== END 2022-12-15 11:31 | disposition home or self-care (01) ==
PROVIDERS: Emergency Provider Emergency Medicine; PCP Nurse Practitioner Family; Visit Provider Emergency Medicine
DX: F11.20 Opioid dependence, uncomplicated (principal); M54.6 Pain in thoracic spine; M54.16 Radiculopathy, lumbar region; F17.210 Nicotine dependence, cigarettes, uncomplicated; G89.29 Other chronic pain
CPT/HCPCS: 96360; 96361; 96372; 99283; J7030; A4216

== ENCOUNTER 2023-01-02 06:10 | Inpatient (IN) | payer SELFPAY ==
[2023-01-02] VITALS (7 sets, daily range): BP systolic 132–182; BP diastolic 70–102; PULSE 66–98; RESP 16–18; TEMP 36.6–37.2; O2SAT 95–99; BMI 34.9; BMI 33.9
--- NOTE | 2023-01-02 06:19 | EDS_ITS ---
HPI History of Present Illness Chief Complaint: Substance Abuse Informant: patient Narrative Narrative: Patient presents requesting opiate detox. He has been snorting fentanyl daily for several months, mostly started because of needing pain control. He states he has had a history of kidney stones, joint pains with regards to multiple areas of arthritis, and back pain. He understands getting off of prescription drugs we will leave him looking for alternatives for his painful conditions, but states that since he has been in withdrawal all night since his last use was 24 hours ago, he has been miserable and wants to get off of fentanyl, which he has been using from the street. [facility] Medical History (Updated 01/02/23 @ 06:[address] Yimi Lilly MD) Acute opioid withdrawal Anxiety Back problem Bipolar disorder Caffeine abuse, continuous Chronic pain Chronic right shoulder pain Chronic thoracic back pain Depression Elevated blood pressure reading Kidney stones Lumbar radiculopathy, chronic Marijuana abuse Schizophrenia Smoker Substance abuse Home Medications NK 09/07/22 [History Last Taken Unknown] Allergy/AdvReac Type Severity Reaction Status Date / Time No Known Allergies Allergy Verified 01/02/23 06:11 Family History Other Angina at rest Anxiety Colon cancer Depression Diabetes Hypertension Melanoma Myocardial infarction Surgical History History of colonoscopy Social History Smoking Status: Current every day smoker tobacco type: cigarettes alcohol intake: never substance use type: does not use what type of physical activity do you participate in: none ROS ROS ED Constitutional Constitutional ED: Reports malaise; Denies chills or fever(s) Eyes Eyes: Denies change in vision or diplopia ENT ENT ED: Denies rhinorrhea or sore throat Cardiovascular Cardiovascular: Denies chest pain or palpitations Respiratory/Chest Respiratory/Chest: Denies cough or dyspnea Gastrointestinal Gastrointestinal: Reports abdominal pain, nausea and vomiting; Denies diarrhea Genitourinary Genitourinary ED: Denies dysuria or hematuria Musculoskeletal Musculoskeletal: Reports myalgias; Denies back pain or neck pain Integumentary Denies abscess or rash Neurologic Neurologic: Denies headache(s), paresthesias or weakness Psychiatric Psychiatric: Reports anxiety; Denies suicidal thoughts EXAM Physical Exam Const Vital Signs: 01/02/23 06:11 01/02/23 06:16 01/02/23 06:39 Temperature 98.0 F 97.9 F Temperature Source Temporal Temporal Pulse Rate 85 76 Respiratory Rate 18 18 Blood Pressure 179/102 H 182/91 H 153/76 H Blood Pressure Mean 127 121 101 Pulse Ox 99 95 Oxygen Delivery Method Room Air Room Air Positive well nourished and well developed General Appearance ED: well developed and NAD HEENT Reports moist mucous membranes normocephalic and atraumatic Eyes PERRL and EOMs intact bilaterally Neck full ROM and supple Chest Wall inspection of chest normal and palpation of chest normal Resp normal respiratory effort and clear to auscultation bilaterally Cardio regular rate, regular rhythm and no murmurs Rate: Negative for tachycardic GI non-tender and non-distended Auscultation: normoactive bowel sounds Palpation: soft Back/Spine no CVA tenderness General Back: other FROM Extremity normal to inspection General Extremety ED: Negative for edema, pulses abnormal or tenderness General Extremity: Negative for edema or pulses abnormal Neuro oriented x3, CN's II-XII intact bilaterally and no sensory deficits noted Sensorium / Orientation: awake and alert Motor Exam: strength 5/5 throughout Psych mental status grossly normal and thought process normal Skin no rashes or lesions noted and no wounds MDM MDM MDM Narrative Medical decision making narrative: Pt clinically and hemodynamically stable for admission to [facility] program. Discussed w/ hospitalist. Lab Data Attestation: I reviewed the patient's lab results. Labs: Laboratory Results - last 24 hr 01/02/23 06:33 WBC 13.6 H RBC 4.87 Hgb 16.1 Hct 48.5 MCV 99.6 H MCH 33.1 H MCHC 33.2 RDW Std Deviation 42.4 RDW Coeff of Melisa 11.6 Plt Count 223 MPV 9.4 Immature Gran % (Auto) 0.300 Neut % (Auto) 78.7 H Lymph % (Auto) 11.7 L [place] % (Auto) 3.8 Eos % (Auto) 4.8 Baso % (Auto) 0.7 Absolute Neuts (auto) 10.7 H Absolute Lymphs (auto) 1.59 Nucleated RBC % 0 Ur Drug Screen Comment Rhythm Strip Rhythm Strip: Sinus Rhythm Rate: 85 Ectopy: None Management Discussion w/another healthcare provider: Hospitalist Discharge Plan Triage Chief Complaint: Substance Abuse ED Provider: Byron Velarde Dx/Rx/DC Orders Clinical Impression: Opioid dependence Primary Care Provider: Hector Segovia APPLICATIONS ENGINEERING MANAGER
--- NOTE | 2023-01-02 06:26 | HP.PCM.HOS_ITS ---
HPI - General General Date of Admission: 01/02/23 Date of Service: 01/02/23 Chief Complaint: Desire for detoxification HPI Narrative MARIS FABIAN, is a 37 M with a significant history of opioid abuse and tobacco abuse who presents to the emergency department for opioid detoxification. Patient reports that he got hooked onto opioids secondary to chronic pain control. He has been using fentanyl about 4 to 5 months ago. Reportedly he uses about 3 pills of 30 mg of fentanyl. He snorts it. Last time he used was about 24 hours before presentation. He reports withdrawal symptoms of nausea; vomiting and cold chills. Because of withdrawal symptoms patient was ordered tramadol and Zofran at the emergency department Although this patient history includes schizophrenia he denies it. Although his history also include marijuana abuse again he denies it. He was in our ([facility]) opioid detox program in August 2022. [facility] Medical History (Updated 01/02/23 @ 06:[address] Yimi Lilly MD) Acute opioid withdrawal Anxiety Back problem Bipolar disorder Caffeine abuse, continuous Chronic pain Chronic right shoulder pain Chronic thoracic back pain Depression Elevated blood pressure reading Kidney stones Lumbar radiculopathy, chronic Marijuana abuse Schizophrenia Smoker Substance abuse Home Medications NK 09/07/22 [History Last Taken Unknown] Allergy/AdvReac Type Severity Reaction Status Date / Time No Known Allergies Allergy Verified 01/02/23 06:11 Family History Other Angina at rest Anxiety Colon cancer Depression Diabetes Hypertension Melanoma Myocardial infarction Surgical History History of colonoscopy Social History Smoking Status: Current every day smoker tobacco type: cigarettes alcohol intake: never substance use type: does not use what type of physical activity do you participate in: none ROS ROS Narrative Pertinent positives and pertinent negatives as noted in HPI. All other systems were reviewed and are negative Vital Signs Vital Signs Vital Signs: 01/02/23 06:11 01/02/23 06:16 Temperature 98.0 F Temperature Source Temporal Pulse Rate 85 Respiratory Rate 18 Blood Pressure 179/102 H 182/91 H Blood Pressure Mean 127 121 Pulse Ox 99 Oxygen Delivery Method Room Air Weight Weight: 113.653 kg Body Mass Index (BMI) 34.9 Physical Exam Narrative Physical exam: General: Well-nourished, well-developed. Head: Normocephalic, atraumatic, no tenderness Eyes: Vision is grossly intact. EOMI ENT, no trauma, moist mucous membranes, no rhinorrhea Neck: Nontender, No thyromegaly. CVS: Regular rate and rhythm. S1-S2 present. No murmur, gallop or rub. Respiratory : clear to auscultation bilaterally, chest wall nontender Abdomen: Soft, nontender, nondistended, normal bowel sounds, no masses : Deferred Back: Nontender, no CVA tenderness. Extremities: Nontender full range of motion, no trauma Skin: Normal color, no trauma, abrasions Neuro: Alert, oriented, cranial nerves II through XII grossly intact. Psychiatry: Normal mood. Normal affect. Not depressed. Not anxious. Assessment & Plan Assessment/Plan (1) Opioid dependence: QUALIFIERS: Substance use status: in withdrawal Qualified Code(s): F11.23 - Opioid dependence with withdrawal (2) Tobacco abuse: PLAN: Plan Opioid dependence and withdrawal Patient be started on Subutex and other adjunctive medications: Gabapentin as needed; dicyclomine as needed; Vistaril as needed; methocarbamol as needed; clonidine as needed; Imodium as needed; trazodone as needed and Zofran as needed. Monitor COWS and CINA score Tobacco abuse Counseled Nicotine patch prescribed. Elevated blood pressure without diagnosis of hypertension Elevated blood pressure likely secondary to opioid abuse. Opioid withdrawal protocol as above. Trend blood pressures. DVT prophylaxis Low risk Encourage to ambulate Time spent in the patient's overall evaluation,decision-making process, review of diagnostic data, adjustment of management, discussion with other providers, nursing nursing and ancillary staff involved in patient's care documentation, 40 minutes. Charges/Coding Visit Charges Inpatient E&M: 42871 Init Hosp L2
[2023-01-02] MEDS: traMADol 50 MG Tablet 100 MG PO (06:32)
[2023-01-02] MEDS: Ondansetron ODT 4 MG Tablet 8 MG PO (06:32)
[2023-01-02 06:40] LABS: Absolute Lymphocyte Count 1.59 X10^3/uL (0.83-4.51); Absolute Neutrophil Count 10.7 X10^3/uL (2.0-7.7); Basophil# 0.09 X10^3/uL; Basophil% 0.7 % (0-1); Eosinophil# 0.65 X10^3/uL; Eosinophils% 4.8 % (0-5); Hematocrit 48.5 % (40-54); Hemoglobin 16.1 g/dL (13.0-16.5); Lymphocyte # 1.59 X10^3/ul (0.83-4.51); Lymphocyte % 11.7 % (19-41); Mean Corp Hgb Conc 33.2 g/dL (32-36); Mean Corpuscular Hgb 33.1 pg (27.0-32.0); Mean Corpuscular Volume 99.6 fL (80-94); Mean Platelet Vol. 9.4 fl (6.2-12.0); Monocyte# 0.52 X10^3/uL; Monocyte% 3.8 % (0-10); NRBC Flagged by Analyzer 0 % (0-5); Neutrophil # 10.68 X10^3/uL (2.7-7.7); Neutrophil % 78.7 % (47-70); Platelet Count 223 K/mm3 (150-450); RBC Distribution Width CV 11.6 % (11.6-14.6); RBC Distribution Width SD 42.4 fl (35.1-43.9); Red Blood Count 4.87 M/mm3 (4.6-6.2); White Blood Count 13.6 K/mm3 (4.4-11.0)
--- NOTE | 2023-01-02 06:56 | PCM.PN.HOSP ---
Reason for Visit Reason for Visit: Opiate detox Subjective Subjective Mr. Alcazar is a 37-year-old white male who presented to the emergency department at [facility] on 01/02/2023 requesting detox from opiates. Patient reports that he got hooked on opiate pills secondary to chronic pain control and has been using fentanyl for about 4 to 5 months. He uses 3 pills of 30 mg fentanyl tablets a day and he uses intranasally. His last use was about 24 hours before presentation and at the time of presentation he was having nausea, vomiting, and chills. Patient was recently admitted to our detox program in August 2022 and followed up as an outpatient with individual counseling in [place]. Vital signs on presentation were unremarkable except for elevated blood pressure which was felt to be related to his withdrawal symptoms. CBC is unremarkable and chemistry panel is unremarkable. Toxicology screen was unremarkable. Objective Data Objective Data Vital Signs: Vital Signs Temp Pulse Resp BP Pulse Ox O2 Del Method 97.9 F 76 18 153/76 H 95 Room Air 01/02/23 06:39 01/02/23 06:39 01/02/23 06:39 01/02/23 06:39 01/02/23 06:39 01/02/23 06:39 Oxygen Delivery Method Room Air Weight: 113.653 kg Body Mass Index (BMI) 34.9 Lab / Micro Data 01/02/23 06:33 01/02/23 06:33 Labs: Laboratory Results - last 24 hr 01/02/23 06:33: WBC 13.6 H, RBC 4.87, Hgb 16.1, Hct 48.5, MCV 99.6 H, MCH 33.1 H, MCHC 33.2, RDW Std Deviation 42.4, RDW Coeff of Melisa 11.6, Plt Count 223, MPV 9.4, Immature Gran % (Auto) 0.300, Neut % (Auto) 78.7 H, Lymph % (Auto) 11.7 L, [place] % (Auto) 3.8, Eos % (Auto) 4.8, Baso % (Auto) 0.7, Absolute Neuts (auto) 10.7 H, Absolute Lymphs (auto) 1.59, Nucleated RBC % 0, Ur Drug Screen Comment Rhythm Strip Rhythm Strip: Sinus Rhythm Rate: 85 Ectopy: None Assessment & Plan Assessment/Plan (1) Tobacco abuse: (2) Opioid dependence: QUALIFIERS: Substance use status: in withdrawal Qualified Code(s): F11.23 - Opioid dependence with withdrawal (3) Opiate withdrawal: PLAN: Plan Acute opiate withdrawal -Subutex taper per COWS protocol -Supportive medication for symptom control -180 consultation Leukocytosis -Suspect reactive and related to dehydration with nausea and vomiting -No need to reassess Elevated blood pressure -Suspect related to acute withdrawal symptoms however will monitor -Has not consistently had systolics greater than 160 so we will hold on as needed hydralazine at this time History of nephrolithiasis -History of lithotripsy and stent placement -No current issues Chronic pain -Would recommend outpatient follow-up with pain management History of PTSD -Patient is not on any medication chronically for this -Recommend outpatient counseling and psychiatry follow-up Tobacco abuse -Nicotine patch -Recommend cessation DVT prophylaxis -Low risk -Recommend frequent and early ambulation CODE STATUS -Full code
[2023-01-02 06:57] LABS: AST(SGOT) 13 U/L (15-37); Alanine Aminotransfer ALT/SGPT 24 U/L (16-61); Albumin, Serum 3.6 g/dL (3.2-5.0); Alkaline Phosphatase 88 U/L (45-117); Anion Gap 4 (5-15); BUN 13 mg/dL (7-18); BUN/Creat Ratio 12.4 RATIO (10-20); Calcium,Total 8.7 mg/dL (8.5-10.1); Chloride 109 mmol/L (98-107); Creatinine, Serum 1.05 mg/dL (0.70-1.30); EST Glomerular Filtration Rate 85 mL/min (>60); Est Glom Filt Rate - Afr Amer 103 mL/min (>60); Estimated Creatinine Clearance 104.58 ml/min; Globulin 3.5 g/dL (2.2-4.2); Glucose 137 mg/dL (74-106); Potassium 3.9 mmol/L (3.5-5.1); Protein, Total 7.1 g/dL (6.4-8.2); Sodium Level 140 mmol/L (136-145)
[2023-01-02 07:00] LABS: Amphetamine Urine VISTA NEGATIVE (<1000 ng/mL); Barbiturate Urine VISTA NEGATIVE (< 200 ng/mL); Benzodiazepine Urine VISTA NEGATIVE (< 200 ng/mL); Cocaine Urine VISTA NEGATIVE (< 300 ng/mL); Ecstacy Urine VISTA NEGATIVE (< 500 ng/mL); Methadone Urine VISTA NEGATIVE (< 300 ng/mL); PCP Urine VISTA NEGATIVE (< 25 ng/mL); THC Urine VISTA NEGATIVE (< 50 ng/mL); Vista UDS pH Range 7
[2023-01-02 07:33] LABS: Alcohol, Blood (Medical)-Serum < 3.0 mg/dL
[2023-01-02] MEDS: Gabapentin 300 MG Capsule PO ×3 (08:03→23:59)
[2023-01-02] MEDS: Dicyclomine 10 MG Capsule 20 MG PO ×3 (08:03→20:37)
[2023-01-02] MEDS: Buprenorphine HCl 2 MG TAB.SUBL SL ×3 (08:03→23:59)
--- NOTE | 2023-01-02 10:22 | ADDICTION ---
This headline writer met with PT to conduct ASAM, MSE, AUDIT, DUDIT assessments and to plan for d/c. PT A+Ox4 and participated actively. All assessments completed and placed in PT's chart. PT plans to f/u with individual counselor at [facility] for follow-up counseling services.This is the patients 2nd time here in 4 months for detox. He reports he did not follow through with [facility] post dc for RAMP last time. PT did not indicate a need for transportation post d/c from [facility].
[2023-01-02] MEDS: cloNIDine HCl 0.1 MG Tablet PO ×2 (10:55→20:37)
[2023-01-02] MEDS: Methocarbamol 750 MG Tablet PO ×3 (10:55→23:59)
[2023-01-02] MEDS: Ondansetron 8 MG Tablet PO ×2 (10:55→20:37)
[2023-01-02] MEDS: hydrOXYzine PAM 25 MG Capsule 50 MG PO ×2 (10:55→17:53)
[2023-01-02] MEDS: traZODone 100 MG Tablet PO (20:37)
[2023-01-03 06:46] VITALS: BP 134/91; PULSE 68; RESP 20; TEMP 37; O2SAT 99
[2023-01-03] MEDS: Buprenorphine HCl 2 MG TAB.SUBL SL ×2 (06:47→14:21)
[2023-01-03] MEDS: hydrOXYzine PAM 25 MG Capsule 50 MG PO ×2 (06:48→14:21)
[2023-01-03] MEDS: Ondansetron 8 MG Tablet PO ×2 (06:48→14:21)
[2023-01-03] MEDS: Dicyclomine 10 MG Capsule 20 MG PO (06:48)
--- NOTE | 2023-01-03 09:27 | PCM.PN.HOSP ---
Reason for Visit Reason for Visit: Opiate detox Subjective Subjective Patient states overall his detox is going well. Only complains of some nausea and vomiting. Plan is for outpatient follow-up after discharge. Complained about a headache and Tylenol ordered. Objective Data Objective Data Vital Signs: Vital Signs Temp Pulse Resp BP Pulse Ox O2 Del Method 98.6 F 68 20 H 134/91 H 99 Room Air 01/03/23 06:46 01/03/23 06:46 01/03/23 06:46 01/03/23 06:46 01/03/23 06:46 01/03/23 08:01 Oxygen Delivery Method Room Air Weight: 110.4 kg Body Mass Index (BMI) 33.9 Intake & Output: Intake and Output for Last 24 Hours 01/01/23 01/02/23 01/03/23 23:59 23:59 23:59 Intake Total 500 / 500 Balance 500 / 500 Lab / Micro Data 01/02/23 06:33 01/02/23 06:33 Rhythm Strip Rhythm Strip: Sinus Rhythm Rate: 85 Ectopy: None Physical Exam Const alert, oriented x3, no apparent distress and well nourished Constitutional Narrative: Obese, middle-aged, white male, lying in bed, appears comfortable nontoxic HEENT head/scalp atraumatic and moist oral mucous membranes Head and Scalp: normocephalic Resp normal respiratory effort, no retractions, no use of accessory muscles and clear to auscultation bilaterally Auscultation: Negative for rales, rhonchi or wheezes Cardio regular rate, regular rhythm, S1 normal heart sound, S2 normal heart sound, no murmurs, no rub, no gallops and no clicks Neuro oriented x3 and moves all extremities Speech: speech normal Psych affect normal Psych Narrative: Pleasant, interacts appropriately Assessment & Plan Assessment/Plan (1) Opiate withdrawal: (2) Tobacco abuse: PLAN: Plan Acute opiate withdrawal -Subutex taper per [facility] protocol -Supportive medication for symptom control -180 has evaluated the patient and plan is for discharge home with outpatient follow-up Leukocytosis -Suspect reactive and related to dehydration with nausea and vomiting -No need to reassess Elevated blood pressure -Suspect related to acute withdrawal symptoms however will monitor -Overall blood pressures have improved History of nephrolithiasis -History of lithotripsy and stent placement -No current issues Chronic pain -Would recommend outpatient follow-up with pain management History of PTSD -Patient is not on any medication chronically for this -Recommend outpatient counseling and psychiatry follow-up Tobacco abuse -Nicotine patch -Recommend cessation DVT prophylaxis -Low risk -Recommend frequent and early ambulation CODE STATUS -Full code Charges/Coding Visit Charges Inpatient E&M: 47082 Subs Hosp L1
[2023-01-03] MEDS: Gabapentin 300 MG Capsule PO (10:38)
[2023-01-03] MEDS: Methocarbamol 750 MG Tablet PO (10:38)
[2023-01-03 10:43] VITALS: BP 132/82; PULSE 82; RESP 18; TEMP 37.1; O2SAT 98
[2023-01-03 15:56] VITALS: BP 135/85; PULSE 76; RESP 18; TEMP 36.9; O2SAT 97
--- NOTE | 2023-01-03 17:59 | PN.HOSP_ITS ---
Hospitalist Note Pt left AMA.
--- NOTE | 2023-01-03 17:59 | PCM.HOSP.N ---
Hospitalist Note Pt left AMA.
== END 2023-01-03 18:15 | disposition left against medical advice (07) | DRG 894 ==
LOC: ED 06:43 → MS3 06:53
PROVIDERS: Admitting Provider Hospitalist; Emergency Provider Emergency Medicine; PCP Nurse Practitioner Family; Visit Provider Internal Medicine
DX: F11.23 Opioid dependence with withdrawal (principal); F17.210 Nicotine dependence, cigarettes, uncomplicated; M25.511 Pain in right shoulder; M54.6 Pain in thoracic spine; M54.16 Radiculopathy, lumbar region; G89.29 Other chronic pain; F43.12 Post-traumatic stress disorder, chronic; Z53.29 Procedure and treatment not carried out because of patient's decision for other reasons; Z87.442 Personal history of urinary calculi
CPT/HCPCS: 80053; 80307; 82077; 85025; 99284

== ENCOUNTER 2023-03-03 08:27 | Inpatient (IN) | payer MEDICAID, SELFPAY ==
[2023-03-03 08:28] VITALS: BP 148/89; PULSE 73; RESP 18; TEMP 35.8; O2SAT 100
--- NOTE | 2023-03-03 08:38 | EDS_ITS ---
HPI History of Present Illness Chief Complaint: Substance Abuse Detail of Chief Complaint: Request detox from fentanyl Informant: patient Narrative Narrative: Patient presents to the emergency department wanting detox from fentanyl. Patient states that he has been using about every day for about a year. Last use was 24 hours ago. Complains of having abdominal cramping and he vomited 2 hours ago. Denies any fevers. He denies diarrhea. He feels shaky. Complains of cold sweats. Patient last went through detox about 4 months ago at our facility. 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 Patient has history of chronic pain in his back and hips related to arthritis. Patient normally snorts the fentanyl and does not inject IV. [facility] Medical History (Updated 03/03/23 @ 09:[address] Gregg Smith DO) Acute opioid withdrawal Anxiety Back problem Bipolar disorder Caffeine abuse, continuous Chronic pain Chronic right shoulder pain Chronic thoracic back pain Depression Elevated blood pressure reading Kidney stones Lumbar radiculopathy, chronic Marijuana abuse Schizophrenia Smoker Substance abuse Home Medications NK 09/07/22 [History Last Taken Unknown] Allergy/AdvReac Type Severity Reaction Status Date / Time No Known Allergies Allergy Verified 01/02/23 06:11 Family History Other Angina at rest Anxiety Colon cancer Depression Diabetes Hypertension Melanoma Myocardial infarction Surgical History History of colonoscopy Social History Smoking Status: Current every day smoker tobacco type: cigarettes alcohol intake: never substance use type: does not use what type of physical activity do you participate in: none ROS ROS ED Review of Systems ROS Unobtainable: other Constitutional Constitutional ED: Reports lethargy; Denies chills, fever(s), sweats or weight loss Eyes Eyes: Denies blurry vision, change in vision or diplopia ENT ENT ED: Denies rhinorrhea or sore throat Cardiovascular Cardiovascular: Denies chest pain, orthopnea or racing heartbeat Respiratory/Chest Respiratory/Chest: Denies cough, dyspnea, dyspnea on exertion, orthopnea or sputum Gastrointestinal Gastrointestinal: Reports abdominal pain, nausea and vomiting; Denies diarrhea Genitourinary Genitourinary ED: Denies dysuria, hematuria or urinary frequency Musculoskeletal Musculoskeletal: Denies arthralgias, back pain, myalgias or neck pain Integumentary Denies abscess, Abrasions or rash Neurologic Neurologic: Denies headache(s) or weakness Psychiatric Psychiatric: Denies anxiety, depression or suicidal thoughts Endocrine Endocrinology: Denies polydipsia, polyphagia or polyuria Hematologic/Lymphatic Hematologic/Lymphatic: Denies easy bleeding, easy bruising or lymphadenopathy Allergic/Immunologic Allergic/Immunologic ED: Denies mouth swelling, tongue swelling or urticaria EXAM Physical Exam Const Vital Signs: 03/03/23 08:28 Temperature 96.5 F L Temperature Source Temporal Pulse Rate 73 Respiratory Rate 18 Blood Pressure 148/89 H Blood Pressure Mean 108 Pulse Ox 100 Oxygen Delivery Method Room Air Positive well nourished and well developed General Appearance ED: well developed and NAD HEENT Reports TM's clear and moist mucous membranes normocephalic and atraumatic; Negative for trauma or tenderness Tympanic Membrane ED: Yes TM's clear Eyes PERRL and EOMs intact bilaterally General Eye ED: Negative for pale conjunctiva or scleral icterus Neck no lymphadenopathy, supple and no JVD General: Negative for tenderness Chest Wall inspection of chest normal and palpation of chest normal Chest: Negative for tenderness Resp normal respiratory effort and clear to auscultation bilaterally Effort and Inspection: Negative for respiratory distress or pain with movement Auscultation: Negative for rhonchi, wheezes or diminished lung sounds Cardio regular rate, regular rhythm, S1 normal heart sound, S2 normal heart sound and no murmurs Peripheral Pulses: pulses 2+ throughout GI normal to inspection, nondistended, normoactive bowel sounds, soft to palpation, non-tender, non-distended and no masses Back/Spine no CVA tenderness and no thoracic nor lumbar tenderness Extremity normal to inspection General Extremety ED: Negative for edema General Extremity: Negative for edema Neuro oriented x3, CN's II-XII intact bilaterally, no sensory deficits noted and gait normal Sensorium / Orientation: awake, alert, oriented to person, oriented to place and oriented to time Motor Exam: strength 5/5 throughout and strength abnormal Psych mental status grossly normal Skin no rashes or lesions noted and no wounds MDM MDM MDM Narrative Medical decision making narrative: Patient presents with opiate withdrawal after abusing fentanyl. Patient had basic lab work-up ordered including alcohol and tox screen. Patient was given a dose of ODT Zofran 4 mg. Case discussed with hospitalist who will evaluate patient for admission Lab Data Attestation: I reviewed the patient's lab results. Labs: Laboratory Results - last 24 hr 03/03/23 03/03/23 08:35 08:40 WBC 8.4 RBC 5.00 Hgb 16.1 Hct 48.3 MCV 96.6 H MCH 32.2 H MCHC 33.3 RDW Std Deviation 42.1 RDW Coeff of Melisa 11.9 Plt Count 210 MPV 9.3 Immature Gran % (Auto) 0.400 Neut % (Auto) 70.6 H Lymph % (Auto) 15.9 L Wilkinson % (Auto) 7.9 Eos % (Auto) 4.4 Baso % (Auto) 0.8 Absolute Neuts (auto) 5.9 Absolute Lymphs (auto) 1.33 Nucleated RBC % 0 Ur Drug Screen Comment Discharge Plan Triage Chief Complaint: Substance Abuse ED Provider: Gregg Smith Dx/Rx/DC Orders Clinical Impression: Opiate withdrawal, Admitted to substance misuse detoxification center, Hypertension Prescriptions: No Action NK Primary Care Provider: Hector Segovia NP Referrals: Hector Segovia NP, PERSONAL COMPUTER NETWORK ANALYST-C [Primary Care Provider] - Disposition Disposition: Acute Care Hospital [facility]
[2023-03-03] MEDS: Ondansetron ODT 4 MG Tablet PO (08:48)
[2023-03-03 08:54] LABS: Absolute Lymphocyte Count 1.33 X10^3/uL (0.83-4.51); Absolute Neutrophil Count 5.9 X10^3/uL (2.0-7.7); Basophil# 0.07 X10^3/uL; Basophil% 0.8 % (0-1); Eosinophil# 0.37 X10^3/uL; Eosinophils% 4.4 % (0-5); Hematocrit 48.3 % (40-54); Hemoglobin 16.1 g/dL (13.0-16.5); Lymphocyte # 1.33 X10^3/ul (0.83-4.51); Lymphocyte % 15.9 % (19-41); Mean Corp Hgb Conc 33.3 g/dL (32-36); Mean Corpuscular Hgb 32.2 pg (27.0-32.0); Mean Corpuscular Volume 96.6 fL (80-94); Mean Platelet Vol. 9.3 fl (6.2-12.0); Monocyte# 0.66 X10^3/uL; Monocyte% 7.9 % (0-10); NRBC Flagged by Analyzer 0 % (0-5); Neutrophil # 5.93 X10^3/uL (2.7-7.7); Neutrophil % 70.6 % (47-70); Platelet Count 210 K/mm3 (150-450); RBC Distribution Width CV 11.9 % (11.6-14.6); RBC Distribution Width SD 42.1 fl (35.1-43.9); White Blood Count 8.4 K/mm3 (4.4-11.0)
--- NOTE | 2023-03-03 09:10 | PCM.HP.STD ---
HPI - General General Date of Admission: 03/03/23 Date of Service: 03/03/23 Chief Complaint: Opiate abuse HPI Narrative MARIS FABIAN is a 37 M who presented to [facility] ED on 03/03/2023 for opiate detoxification. Patient seen at bedside in the ED. Sitting comfortably in bed, conversing normally, no acute distress. Patient reports mild abdominal cramping currently and notes he had 1 episode of vomiting about 1 to 2 hours prior to admission. States he also feels shaky and has intermittent cold sweats. No other acute withdrawal symptoms currently. Patient is an fentanyl user, snorts fentanyl, not an IV user. Has been using about every day for the last year. Patient was hospitalized for detox at [facility] in mid December; at that time he left AMA on hospital day 2. Patient states he presented again for opiate detoxification because his fianc?e gave him an ultimatum to get clean or she will not him. 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 Patient does not take any home medications. Does report history of chronic back and hip pain that he notes is secondary to arthritis. Patient otherwise denies any acute concerns this time. [facility] Medical History (Updated 03/03/23 @ 09:[address] Gregg Smith DO) Acute opioid withdrawal Anxiety Back problem Bipolar disorder Caffeine abuse, continuous Chronic pain Chronic right shoulder pain Chronic thoracic back pain Depression Elevated blood pressure reading Kidney stones Lumbar radiculopathy, chronic Marijuana abuse Schizophrenia Smoker Substance abuse Home Medications NK 09/07/22 [History Last Taken Unknown] Allergy/AdvReac Type Severity Reaction Status Date / Time No Known Allergies Allergy Verified 01/02/23 06:11 Family History Other Angina at rest Anxiety Colon cancer Depression Diabetes Hypertension Melanoma Myocardial infarction Surgical History History of colonoscopy Social History Smoking Status: Current every day smoker tobacco type: cigarettes alcohol intake: never substance use type: does not use what type of physical activity do you participate in: none ROS Constitutional Constitutional: Reports change in weight and malaise; Denies chills, fever(s) or weakness Eyes Eyes: Denies change in vision ENT HEENT: Denies nasal congestion or nasal discharge Cardiovascular Cardiovascular: Denies chest pain or dyspnea on exertion Respiratory/Chest Respiratory/Chest: Denies cough or shortness of breath at rest Gastrointestinal Gastrointestinal: Reports nausea; Denies abdominal pain, constipation, diarrhea or vomiting Genitourinary Genitourinary: Denies dysuria Musculoskeletal Musculoskeletal: Reports arthralgias, back pain and joint pain Neurologic Neurologic: Denies abnormal gait Psychiatric Psychiatric: Reports anxiety; Denies depression Vital Signs Vital Signs Vital Signs: 03/03/23 08:28 Temperature 96.5 F L Temperature Source Temporal Pulse Rate 73 Respiratory Rate 18 Blood Pressure 148/89 H Blood Pressure Mean 108 Pulse Ox 100 Oxygen Delivery Method Room Air Physical Exam Const alert, oriented x3, no apparent distress, healthy appearing and well nourished Constitutional Narrative: Pleasant younger male, obese, sitting comfortably in bed, conversing normally, no acute distress. General Appearance: cooperative and comfortable HEENT normocephalic, head/scalp atraumatic, hearing grossly normal bilaterally, nasal mucous membranes and turbinates normal and moist oral mucous membranes Eyes PERRL, EOMs intact bilaterally and conjunctivae normal Neck full ROM, no lymphadenopathy and supple Lymph Lymphatic: no lymphadenopathy noted Chest inspection of chest normal Resp normal respiratory effort, normal air movement, no use of accessory muscles and clear to auscultation bilaterally Cardio regular rate, regular rhythm, no murmurs and peripheral pulses 2+ throughout GI normal to inspection, nondistended, normoactive bowel sounds, soft to palpation, non-tender and non-distended Back/Spine normal ROM Extremity normal to inspection, full ROM and no pedal edema Skin no rashes or lesions noted Psych mental status grossly normal Results Lab / Micro Data 03/03/23 08:40 03/03/23 08:40 Labs: Laboratory Results - last 24 hr 03/03/23 08:35: Ur Drug Screen Comment 03/03/23 08:40: WBC 8.4, RBC 5.00, Hgb 16.1, Hct 48.3, MCV 96.6 H, MCH 32.2 H, MCHC 33.3, RDW Std Deviation 42.1, RDW Coeff of Melisa 11.9, Plt Count 210, MPV 9.3, Immature Gran % (Auto) 0.400, Neut % (Auto) 70.6 H, Lymph % (Auto) 15.9 L, [place] % (Auto) 7.9, Eos % (Auto) 4.4, Baso % (Auto) 0.8, Absolute Neuts (auto) 5.9, Absolute Lymphs (auto) 1.33, Nucleated RBC % 0 Assessment & Plan Assessment/Plan (1) Opioid dependence: QUALIFIERS: Substance use status: in withdrawal Qualified Code(s): F11.23 - Opioid dependence with withdrawal PLAN: Plan Patient is a 37-year-old male who presented with [facility] ED on 03/03/2023 for opiate detoxification. 1. Opiate abuse Daily fentanyl user for the last year. Snorts fentanyl, not an IV drug user. Previously hospitalized in December for opiate detoxification, left AMA on hospital day 2. Mild withdrawal symptoms noted on admission. ? Admit under inpatient status to [facility]. Case management consulted. Opiate withdrawal order set placed with initiation of Subutex taper. Monitor. 2. Nicotine abuse ? Due to smoker, smokes about 1 pack/day. Nicotine patch prescribed. DVT prophylaxis: Low risk, ambulate CODE STATUS: Full code, verified Expected disposition: Home, 2 to 3 days Total clinical time spent by myself addressing the patient's medical issues, reviewing all the data, and collaborating with patient's care team: 40 minutes. Charges/Coding Visit Charges Inpatient E&M: 40261 Init Hosp L1
[2023-03-03 09:12] LABS: ALB/GLOB Ratio 1.1 RATIO (0.9-2.4); AST(SGOT) 12 U/L (15-37); Alanine Aminotransfer ALT/SGPT 18 U/L (16-61); Albumin, Serum 3.7 g/dL (3.2-5.0); Alkaline Phosphatase 92 U/L (45-117); Anion Gap 3 (5-15); BUN 13 mg/dL (7-18); BUN/Creat Ratio 13.5 RATIO (10-20); Calcium,Total 8.9 mg/dL (8.5-10.1); Chloride 109 mmol/L (98-107); Creatinine, Serum 0.96 mg/dL (0.70-1.30); EST Glomerular Filtration Rate 94 mL/min (>60); Est Glom Filt Rate - Afr Amer 114 mL/min (>60); Globulin 3.5 g/dL (2.2-4.2); Glucose 120 mg/dL (74-106); Potassium 3.8 mmol/L (3.5-5.1); Protein, Total 7.2 g/dL (6.4-8.2); Sodium Level 139 mmol/L (136-145)
[2023-03-03 09:12] LABS: Amphetamine Urine VISTA NEGATIVE (<1000 ng/mL); Barbiturate Urine VISTA NEGATIVE (< 200 ng/mL); Benzodiazepine Urine VISTA NEGATIVE (< 200 ng/mL); Cocaine Urine VISTA NEGATIVE (< 300 ng/mL); Ecstacy Urine VISTA NEGATIVE (< 500 ng/mL); Methadone Urine VISTA NEGATIVE (< 300 ng/mL); PCP Urine VISTA NEGATIVE (< 25 ng/mL); THC Urine VISTA NEGATIVE (< 50 ng/mL); Vista UDS pH Range 6
[2023-03-03 09:27] LABS: Alcohol, Blood (Medical)-Serum < 3.0 mg/dL
[2023-03-03 11:01] VITALS: BMI 34.2
[2023-03-03 11:04] VITALS: BP 127/87; PULSE 58; RESP 18; TEMP 36.8; O2SAT 98
[2023-03-03] MEDS: Methocarbamol 750 MG Tablet PO ×2 (11:37→21:07)
[2023-03-03] MEDS: Gabapentin 300 MG Capsule PO ×2 (11:37→21:07)
[2023-03-03] MEDS: Dicyclomine 10 MG Capsule 20 MG PO (11:37)
[2023-03-03] MEDS: Buprenorphine HCl 2 MG TAB.SUBL SL ×2 (11:39→19:36)
[2023-03-03] MEDS: cloNIDine HCl 0.1 MG Tablet PO (13:28)
[2023-03-03] MEDS: hydrOXYzine PAM 25 MG Capsule 50 MG PO (13:28)
[2023-03-03] MEDS: Ondansetron 8 MG Tablet PO (13:44)
[2023-03-03 18:19] VITALS: BP 119/79; PULSE 56; RESP 18; TEMP 36.8; O2SAT 98
[2023-03-03 20:56] VITALS: BP 142/80; PULSE 60; RESP 18; TEMP 36.8; O2SAT 99
[2023-03-03] MEDS: traZODone 100 MG Tablet PO (21:07)
[2023-03-03] MEDS: Acetaminophen 325 MG Tablet 650 MG PO (21:07)
[2023-03-04 02:45] VITALS: BP 134/74; PULSE 70; RESP 18; TEMP 36.6; O2SAT 98
[2023-03-04] MEDS: cloNIDine HCl 0.1 MG Tablet PO ×2 (02:52→16:24)
[2023-03-04] MEDS: hydrOXYzine PAM 25 MG Capsule 50 MG PO ×2 (02:52→16:24)
[2023-03-04] MEDS: Buprenorphine HCl 2 MG TAB.SUBL SL ×2 (02:52→11:33)
[2023-03-04 08:29] VITALS: BMI 33.5
[2023-03-04 10:16] VITALS: BP 138/83; PULSE 68; RESP 16; TEMP 36.7; O2SAT 100
--- NOTE | 2023-03-04 10:48 | ADDICTION ---
This designer writer met with PT to conduct ASAM, MSE, AUDIT assessments and to plan for d/c. PT A+Ox4 and participated actively. All assessments completed, and placed in PT's chart. PT plans to f/u with an assessment at [facility] for follow-up counseling services. PT did not indicate a need for transportation post d/c from [facility]. This worker spoke with the pt about his previous detox admissions. Pt went back to using directly after detox. This is his 4th time in detox. Clinician informed him if that he needed to complete a treatment program in order to be eligible for RAMP in the future.
--- NOTE | 2023-03-04 15:04 | PN.HOSP_ITS ---
Reason for Visit Reason for Visit: Diagnoses Opioid dependence with withdrawal (03/03/23) Subjective Subjective No acute events overnight. Patient seen at bedside this morning. Was sleeping on my arrival to the room. Upon awakening, reports no acute pain or discomfort. States his withdrawal symptoms have been fairly well mitigated by the Subutex taper and as needed medications per the opiate withdrawal order set. Patient has no other concerns morning. Objective Data Objective Data Vital Signs: Vital Signs Temp Pulse Resp BP Pulse Ox O2 Del Method 98.1 F 68 16 138/83 H 100 Room Air 03/04/23 10:16 03/04/23 10:16 03/04/23 10:16 03/04/23 10:16 03/04/23 10:16 03/04/23 10:16 Oxygen Delivery Method Room Air Weight: 108.454 kg Body Mass Index (BMI) 33.5 Intake & Output: Intake and Output for Last 24 Hours 03/02/23 03/03/23 03/04/23 23:59 23:59 23:59 Intake Total 1400 / 1400 900 / 900 Balance 1400 / 1400 900 / 900 Lab / Micro Data 03/03/23 08:40 03/03/23 08:40 Physical Exam Const alert, oriented x3, no apparent distress, healthy appearing and well nourished Constitutional Narrative: Pleasant younger male, obese, laying comfortably in bed, conversing normally, no acute distress. General Appearance: cooperative and comfortable HEENT normocephalic, head/scalp atraumatic, hearing grossly normal bilaterally, nasal mucous membranes and turbinates normal and moist oral mucous membranes Eyes PERRL, EOMs intact bilaterally and conjunctivae normal Neck full ROM, no lymphadenopathy and supple Lymph Lymphatic: no lymphadenopathy noted Chest inspection of chest normal Resp normal respiratory effort, normal air movement, no use of accessory muscles and clear to auscultation bilaterally Cardio regular rate, regular rhythm, no murmurs and peripheral pulses 2+ throughout GI normal to inspection, nondistended, normoactive bowel sounds, soft to palpation, non-tender and non-distended Back/Spine normal ROM Extremity normal to inspection, full ROM and no pedal edema Skin no rashes or lesions noted Psych mental status grossly normal Assessment & Plan Assessment/Plan (1) Opioid dependence: QUALIFIERS: Substance use status: in withdrawal Qualified Code(s): F11.23 - Opioid dependence with withdrawal PLAN: Plan Patient is a 37-year-old male who presented with [facility] ED on 03/03/2023 for opiate detoxification. 1. Opiate abuse Daily fentanyl user for the last year. Snorts fentanyl, not an IV drug user. Previously hospitalized in December for opiate detoxification, left AMA on hospital day 2. Mild withdrawal symptoms noted on admission. ? Continue Subutex taper and as needed medications for opiate withdrawal per order set. Case management, addiction medicine nurse following. Planning to discharge tomorrow afternoon after completion of taper. 2. Nicotine abuse ? Due to smoker, smokes about 1 pack/day. Nicotine patch prescribed. DVT prophylaxis: Low risk, ambulate CODE STATUS: Full code, verified Expected disposition: Home, tomorrow Total clinical time spent by myself addressing the patient's medical issues, reviewing all the data, and collaborating with patient's care team: 25 minutes. Charges/Coding Visit Charges Inpatient E&M: 02793 [facility] Hosp L1
[2023-03-04] MEDS: Methocarbamol 750 MG Tablet PO (16:24)
[2023-03-04 17:00] VITALS: BP 135/84; PULSE 62; RESP 16; TEMP 36.8; O2SAT 99
--- NOTE | 2023-03-04 21:48 | PCM.HOSP.N ---
Hospitalist Note Messaged by nursing staff around 6:30pm that patient decided to leave AMA.
--- NOTE | 2023-03-04 21:49 | PCM.DC.SUM ---
Providers Date of Admission: 03/03/23 Date of Discharge: 03/04/23 Primary Care Physician: BRITTNEY Forbes Reason For Visit: OPIATE DETOXIFICATION Diagnosis Discharge Diagnosis (1) Opioid dependence: Status: Acute Code(s): F11.20 - Opioid dependence, uncomplicated Qualifiers: Substance use status: in withdrawal Qualified Code(s): F11.23 - Opioid dependence with withdrawal Medications at Discharge Home Medications NK 09/07/22 Hospital Course Operations None Procedures None Summary of Care Provided Minutes Spent on Discharge: 25 Hospital Course: Patient is a 37-year-old male who presented with [facility] ED on 03/03/2023 for opiate detoxification. Short hospital course as noted below. Importantly, patient left AGAINST MEDICAL ADVICE on evening of 03/04. Opiate abuse: Presented for opiate detox. Daily fentanyl user for the last year. Snorts fentanyl, not an IV drug user. Previously hospitalized in December for opiate detoxification, left AMA on hospital day 2. Mild withdrawal symptoms noted on admission. Initiated on Subutex taper and as needed medications for opiate withdrawal per order set. Patient reported having good symptom control with these medications. Case management, addiction medicine nurse followed. - Patient left AMA as noted above prior to completion of detox. Nicotine abuse: Current smoker, smokes about 1 pack/day. Nicotine patch prescribed during admission. Discharge diagnoses: - Opiate abuse with acute withdrawal - Nicotine abuse Total clinical time spent by myself addressing the patient's discharge needs: 25 minutes. Physical Exam Const alert, oriented x3, no apparent distress, healthy appearing and well nourished Constitutional Narrative: Pleasant younger male, obese, laying comfortably in bed, conversing normally, no acute distress. General Appearance: cooperative and comfortable HEENT normocephalic, head/scalp atraumatic, hearing grossly normal bilaterally, nasal mucous membranes and turbinates normal and moist oral mucous membranes Eyes PERRL, EOMs intact bilaterally and conjunctivae normal Neck full ROM, no lymphadenopathy and supple Lymph Lymphatic: no lymphadenopathy noted Chest inspection of chest normal Resp normal respiratory effort, normal air movement, no use of accessory muscles and clear to auscultation bilaterally Cardio regular rate, regular rhythm, no murmurs and peripheral pulses 2+ throughout GI normal to inspection, nondistended, normoactive bowel sounds, soft to palpation, non-tender and non-distended Back/Spine normal ROM Extremity normal to inspection, full ROM and no pedal edema Skin no rashes or lesions noted Psych mental status grossly normal Weight / BMI Weight Weight: 108.454 kg Body Mass Index (BMI) 33.5 ABG / Lab / Microbiology Data 03/03/23 08:40 03/03/23 08:40 Meaningful Use Info Meaningful Use Diagnoses (Choose all that apply): None applicable Discharge Plan Admission Admit Date/Time: 03/03/23 09:07 Primary Reason for Your Visit: opiate detox Attending Provider: Meet Hernandez Primary Care Provider: Hector Segovia NP Discharge Orders/Prescriptions Prescriptions: No Action NK Referrals / Follow Up: Hector Segovia NP, DRAFTING DETAILER-C [Primary Care Provider] - Disposition Disposition (needs filled in before D/C Order can be placed): Against Medical Advice Charges/Coding Visit Charges Inpatient E&M: 79235 Disch Hosp
--- NOTE | 2023-03-04 21:53 | DCINST_ITS ---
Discharge Instructions Diet Discharge Diet: No restrictions Activity Discharge Activity: Return to Normal Activity Weight Bearing Status: Full weight bearing Follow Up Care Test Results: Test results from this visit will be discussed in further detail at your follow- up appointment, if applicable. Discharge Plan Admission Admit Date/Time: 03/03/23 09:07 Primary Reason for Your Visit: opiate detox Attending Provider: Meet Hernandez Primary Care Provider: Hector Segovia NP Discharge Orders/Prescriptions Prescriptions: No Action NK Referrals / Follow Up: Hector Segovia NP, DIRECTOR OF STRATEGY & MOBILE-C [Primary Care Provider] - Disposition Disposition (needs filled in before D/C Order can be placed): Against Medical Advice
== END 2023-03-04 17:18 | disposition left against medical advice (07) | DRG 894 ==
LOC: ED 09:11 → MS3 09:35
PROVIDERS: Admitting Provider Hospitalist; Emergency Provider Emergency Medicine; PCP Nurse Practitioner Family; Visit Provider Hospitalist
DX: F11.23 Opioid dependence with withdrawal (principal); E66.9 Obesity, unspecified; M54.9 Dorsalgia, unspecified; F17.210 Nicotine dependence, cigarettes, uncomplicated; G89.29 Other chronic pain; Z53.29 Procedure and treatment not carried out because of patient's decision for other reasons; Z68.33 Body mass index [BMI] 33.0-33.9, adult
CPT/HCPCS: 80053; 80307; 82077; 85025; 99283; 99406

== ENCOUNTER 2024-08-31 16:36 | Observation (INO) | payer MEDICAID, SELFPAY ==
[2024-08-31 16:36] VITALS: BP 148/107; PULSE 99; RESP 19; TEMP 36.6; O2SAT 100; BMI 36.9
--- NOTE | 2024-08-31 17:44 | EX.ED.SAOD ---
HPI History of Present Illness Chief Complaint: Substance Abuse Narrative Narrative: 39-year-old male with past medical history of chronic back pain presents for detox from fentanyl. He last used 20 hours ago and states he snorted fentanyl. He has had prior detox and outpatient rehab about a year to a year and a half ago. He states that with all of his arthritis and chronic back pain and chronic pain in general, that he started using and abusing opiates again. He states he feels tired, and may be slightly nauseated but no vomiting or abdominal pain. He presents for detox from fentanyl. [facility] Medical History Admitted to substance misuse detoxification center Opiate withdrawal Elevated blood pressure reading Opioid dependence Substance abuse Schizophrenia Bipolar disorder Anxiety Depression Chronic pain Smoker Acute opioid withdrawal Marijuana abuse Caffeine abuse, continuous Lumbar radiculopathy, chronic Chronic thoracic back pain Chronic right shoulder pain Back problem Kidney stones Home Medications ?Medication ?Instructions ?Recorded ?Last Taken ?Type NK 09/07/22 Unknown History Allergy/AdvReac Type Severity Reaction Status Date / Time No Known Allergies Allergy Verified 08/31/24 16:39 Family History Other Angina at rest Anxiety Colon cancer Depression Diabetes Hypertension Melanoma Myocardial infarction Surgical History History of colonoscopy Social History Smoking Status: Current every day smoker tobacco type: cigarettes alcohol intake: never substance use type: does not use what type of physical activity do you participate in: none ROS ROS ED ROS Narrative Review of systems positive for slight nausea, chronic back pain. Positive fatigue. No chest pain, no shortness of breath, no abdominal pain, no vomiting. No exacerbating or alleviating factors. EXAM Physical Exam Narrative Exam Narrative: Afebrile. Vital signs noted. Nontoxic-appearing. Cardiovascular examination reveals a regular rate and rhythm. Lungs are clear to auscultation bilaterally. Abdomen is soft, nontender, without guarding or rebound. Positive bowel sounds. Neurological examination is nonfocal, nonlateralizing. No pedal edema. Const Vital Signs: 08/31/24 16:36 08/31/24 18:00 Temperature 97.9 F Temperature Source Temporal Pulse Rate 99 78 Respiratory Rate 19 H 16 Blood Pressure 148/107 H 145/76 H Blood Pressure Mean 120 99 Pulse Ox 100 98 Oxygen Delivery Method Room Air Room Air MDM MDM MDM Narrative Medical decision making narrative: I do not feel differential diagnosis is applicable in this case. Medical screening labs were obtained and are pending. Patient declined any antinausea medication. He states he wanted p.o. fluids. I reviewed his laboratory work and he has a leukocytosis of 15.9 which I think is nonspecific, mild hemoconcentration with a hemoglobin of 16.8, hematocrit 48.1. Platelet count normal at 253. CMP is remarkable for a BUN of 23 with creatinine normal at 1.12, AST slightly elevated at 53 which I think is nonspecific as well as alk phos of 134, ethyl alcohol less than 10.1. While his urine for drugs of abuse is still pending, I discussed the patient with Dr. Edilma Sanford for admission to the medical surgical floor for detoxification from opiates. I do not feel he has active signs of withdrawal currently. Disposition is admit to the general medical floor in stable condition. History & Record Review Discussion w/independent historian: Patient Additional record(s) reviewed:: Prior ED visit Lab Data Attestation: I reviewed the patient's lab results. Labs: Laboratory Results - last 24 hr 08/31/24 18:00 WBC 15.9 H RBC 5.20 Hgb 16.8 H Hct 48.1 MCV 92.5 MCH 32.3 H MCHC 34.9 RDW Std Deviation 42.2 RDW Coeff of Melisa 12.3 Plt Count 253 MPV 9.6 Immature Gran % (Auto) 0.300 Neut % (Auto) 78.8 H Lymph % (Auto) 13.4 L [place] % (Auto) 6.3 Eos % (Auto) 0.9 Baso % (Auto) 0.3 Absolute Neuts (auto) 12.6 H Absolute Lymphs (auto) 2.14 Nucleated RBC % 0 Sodium 144 Potassium 3.9 Chloride 106 Carbon Dioxide 25.7 Anion Gap 13 BUN 23 H Creatinine 1.12 Estim Creat Clear Calc 119.12 Est GFR (MDRD) Non-Af 87 BUN/Creatinine Ratio 20.4 H Glucose 97 Calcium 9.7 Total Bilirubin 0.82 AST 53 H ALT 24 Alkaline Phosphatase 134 H Total Protein 7.6 Albumin 4.4 Globulin 3.2 Albumin/Globulin Ratio 1.4 Ethyl Alcohol < 10.1 Management Discussion w/another healthcare provider: Hospitalist (Dr. Sanford) Discharge Plan Dx/Rx/DC Orders Clinical Impression: Lumbar radiculopathy, chronic, Desire for detoxification, Opiate addiction Disposition Disposition: Acute Care Hospital [facility]
[2024-08-31] MEDS: Acetaminophen 325 MG Tablet 650 MG PO (17:53)
[2024-08-31 18:00] VITALS: BP 145/76; PULSE 78; RESP 16; O2SAT 98
[2024-08-31 18:19] LABS: Absolute Lymphocyte Count 2.14 X10^3/uL (0.83-4.51); Absolute Neutrophil Count 12.6 X10^3/uL (2.0-7.7); Basophil# 0.05 X10^3/uL; Basophil% 0.3 % (0-1); Eosinophil# 0.14 X10^3/uL; Eosinophils% 0.9 % (0-5); Hematocrit 48.1 % (40-54); Hemoglobin 16.8 g/dL (13.0-16.5); Lymphocyte # 2.14 X10^3/ul (0.83-4.51); Lymphocyte % 13.4 % (19-41); Mean Corp Hgb Conc 34.9 g/dL (32-36); Mean Corpuscular Hgb 32.3 pg (27.0-32.0); Mean Corpuscular Volume 92.5 fL (80-94); Mean Platelet Vol. 9.6 fl (6.2-12.0); Monocyte% 6.3 % (0-10); NRBC Flagged by Analyzer 0 % (0-5); Neutrophil # 12.56 X10^3/uL (2.7-7.7); Neutrophil % 78.8 % (47-70); Platelet Count 253 K/mm3 (150-450); RBC Distribution Width CV 12.3 % (11.6-14.6); RBC Distribution Width SD 42.2 fl (35.1-43.9); White Blood Count 15.9 K/mm3 (4.4-11.0)
[2024-08-31 18:36] LABS: ALB/GLOB Ratio 1.4 RATIO (0.9-2.4); AST(SGOT) 53 U/L (<=37); Alanine Aminotransfer ALT/SGPT 24 U/L (<=46); Albumin, Serum 4.4 g/dL (3.5-5.0); Alcohol, Blood (Medical)-Serum < 10.1 mg/dL (<=10.0); Alkaline Phosphatase 134 U/L (40-129); Anion Gap 13 (5-15); BUN 23 mg/dL (4-19); BUN/Creat Ratio 20.4 RATIO (10-20); Calcium,Total 9.7 mg/dL (7.6-11.0); Carbon Dioxide 25.7 mmol/L (21.0-32.0); Chloride 106 mmol/L (98-108); Creatinine, Serum 1.12 mg/dL (0.70-1.20); EST Glomerular Filtration Rate 87 (>60); Estimated Creatinine Clearance 119.12 ml/min (50-250); Globulin 3.2 g/dL (2.2-4.2); Glucose 97 mg/dL (70-99); Potassium 3.9 mmol/L (3.3-5.1); Protein, Total 7.6 g/dL (5.9-8.4); Sodium Level 144 mmol/L (133-145); Total Bilirubin 0.82 mg/dL (0.00-1.30)
--- NOTE | 2024-08-31 18:52 | PCM.HP.STD ---
HPI - General General Date of Admission: 08/31/24 Date of Service: 08/31/24 Chief Complaint: Acute Opiate Withdrawal HPI Narrative The patient is a 39 y/o M w/ PMHx: Obesity, schizophrenia/bipolar disorder/anxiety and depression, tobacco use, chronic lumbar back pain with radiculopathy with chronic pain, polysubstance abuse with currently persistent fentanyl usage of 1 g daily as well as alcohol abuse with 6 to 12 pack of beer daily with last fentanyl usage approximately 20 hours previous and last alcohol intake the evening prior who presents to the [facility] ED on 08/31/2024 with history of request for detox from opiates as well as alcohol with noted nausea without emesis, mild abdominal cramping, muscle aches, notable lacrimation increase, restlessness, tremors and tactile disturbances. Workup in the ED included T97.9, heart rate 99, BP 145/76, respiratory rate 16, 98% room air, CBC with WBC 15.9, hemoglobin 16.8, platelet 253 with left shift, CMP with BUN/creatinine 23/1.12, GFR 87, AST 53, alk phos 134 otherwise hepatic profile not marked appearing, alcohol less than 10.1, urine drug screen pending upon request evaluation of patient. In the ED patient ministered acetaminophen 650 mg p.o. x 1. [facility] Medical History (Updated 08/31/24 @ 19:[address] Edilma Sanford MD) Alcohol abuse Admitted to substance misuse detoxification center Opiate withdrawal Elevated blood pressure reading Opioid dependence Substance abuse Schizophrenia Bipolar disorder Anxiety Depression Chronic pain Smoker Acute opioid withdrawal Marijuana abuse Caffeine abuse, continuous Lumbar radiculopathy, chronic Chronic thoracic back pain Chronic right shoulder pain Back problem Kidney stones Home Medications ?Medication ?Instructions ?Recorded ?Last Taken ?Type NK 09/07/22 Unknown History Allergy/AdvReac Type Severity Reaction Status Date / Time No Known Allergies Allergy Verified 08/31/24 16:39 Family History (Updated 08/31/24 @ 19:[address] Edilma Sanford MD) Mother Anxiety Depression Diabetes Hypertension Myocardial infarction Heart disease CAD (coronary artery disease) Alcohol abuse Father Anxiety Depression Diabetes Hypertension Myocardial infarction Heart disease CAD (coronary artery disease) Alcohol abuse Surgical History History of colonoscopy Social History (Updated 08/31/24 @ 19:[address] Edilma Sanford MD) household members: other details: Lives with his girlfriend who does not have any substance abuse history. Smoking Status: Current every day smoker tobacco type: cigarettes Smoking packs per day: 1 Smoking cigarettes per day: 20.0 alcohol intake: current alcohol intake frequency: 3 or more drinks per day Alcohol type: beer details: 6-12 pack daily beer. substance use type: other details: Currently using fentanyl, 1 g daily. what type of physical activity do you participate in: none ROS ROS Narrative Admission Review of Systems: CONSTITUTIONAL: No weight loss, fever, chills, + weakness or fatigue. HEENT: + Significant tearing. Eyes: No visual loss, blurred vision, double vision or yellow sclerae. Ears, Nose, Throat: No hearing loss, sneezing, congestion, runny nose or sore throat. SKIN: No rash or itching, lesions, wounds. CARDIOVASCULAR: No chest pain, chest pressure or chest discomfort, palpitations, edema, orthopnea, syncopal events. RESPIRATORY: No shortness of breath, cough or sputum, wheezing, hemoptysis. GASTROINTESTINAL: + Anorexia, nausea, abdominal cramping. No vomiting, diarrhea, melena, BRBPR. GENITOURINARY: No dysuria, frequency, urgency or retention. NEUROLOGICAL: + Tremors, tactile disturbances. No headache, dizziness, syncope, paralysis, ataxia, numbness or tingling in the extremities, focal weakness, change in bowel or bladder control, seizure. MUSCULOSKELETAL: + muscle, back pain, joint pain or stiffness. HEMATOLOGIC: No anemia, bleeding or bruising. LYMPHATICS: No enlarged nodes. No history of splenectomy. PSYCHIATRIC: + History of anxiety and depression/bipolar disorder/schizophrenia. ENDOCRINOLOGIC: + reports of sweating, cold or heat intolerance. No polyuria or polydipsia. ALLERGIES: No history of asthma, hives, eczema or rhinitis. Vital Signs Vital Signs Vital Signs: 08/31/24 16:36 08/31/24 18:00 Temperature 97.9 F Temperature Source Temporal Pulse Rate 99 78 Respiratory Rate 19 H 16 Blood Pressure 148/107 H 145/76 H Blood Pressure Mean 120 99 Pulse Ox 100 98 Oxygen Delivery Method Room Air Room Air Weight Weight: 265 lb Body Mass Index (BMI) 36.9 Physical Exam Narrative Physical Examination: General: Awake, alert, oriented x 3 and cooperative, seated upright in the bed, tremulous, restless, evident withdrawal. Skin: Normal color, normal turgor, no icterus, no cyanosis except occasional stage ecchymoses, abrasions. HEENT: AT/NC, EOMI, PERRLA, dry MM, no carotid bruits or JVD noted. Lungs: Mildly diminished, greater bases, appropriate effort, no rales, ronchi or wheezing. Heart: Mildly tachycardic with regular rhythm; no gallop, rub audible. Abdomen: Soft, obese NTTP, hyperactive BS, difficult to appreciate distention and HSM given habitus. Extremities: No cyanosis, clubbing, or edema. Neurological: Patient awake, alert, oriented as noted cognitive function intact; pupils equally reactive to light and accommodation, cranial nerves gross normal, moving all 4 extremities, no focal deficits, strength moderately global decrease secondary to acute presentation, very tremulous, restless Psychiatric: Affect appears restless, evident withdrawal, no acute evidence of depressive or anxiety feelings but does have underlying psychiatric history. Results Lab / Micro Data 08/31/24 18:00 08/31/24 18:00 Labs: Laboratory Results - last 24 hr 08/31/24 18:00: WBC 15.9 H, RBC 5.20, Hgb 16.8 H, Hct 48.1, MCV 92.5, MCH 32.3 H, MCHC 34.9, RDW Std Deviation 42.2, RDW Coeff of Melisa 12.3, Plt Count 253, MPV 9.6, Immature Gran % (Auto) 0.300, Neut % (Auto) 78.8 H, Lymph % (Auto) 13.4 L, [place] % (Auto) 6.3, Eos % (Auto) 0.9, Baso % (Auto) 0.3, Absolute Neuts (auto) 12.6 H, Absolute Lymphs (auto) 2.14, Nucleated RBC % 0, Sodium 144, Potassium 3.9, Chloride 106, Carbon Dioxide 25.7, Anion Gap 13, BUN 23 H, Creatinine 1.12, Estim Creat Clear Calc 119.12, Est GFR (MDRD) Non-Af 87, BUN/Creatinine Ratio 20.4 H, Glucose 97, Calcium 9.7, Total Bilirubin 0.82, AST 53 H, ALT 24, Alkaline Phosphatase 134 H, Total Protein 7.6, Albumin 4.4, Globulin 3.2, Albumin/Globulin Ratio 1.4, Ethyl Alcohol < 10.1 Assessment & Plan Assessment/Plan (1) Opiate withdrawal: PLAN: Plan The patient is a 39 y/o M w/ PMHx: Obesity, schizophrenia/bipolar disorder/anxiety and depression, tobacco use, chronic lumbar back pain with radiculopathy with chronic pain, polysubstance abuse with currently persistent fentanyl usage of 1 g daily as well as alcohol abuse with 6 to 12 pack of beer daily with last fentanyl usage approximately 20 hours previous and last alcohol intake the evening prior who presents to the [facility] ED on 08/31/2024 with history of request for detox from opiates as well as alcohol with noted nausea without emesis, mild abdominal cramping, muscle aches, notable lacrimation increase, restlessness, tremors and tactile disturbances. #1. Acute Opiate Withdrawal: Will admit to [facility], routine labs including CBC, CMP, ethyl alcohol obtained in ED, urine drug screen pending upon evaluation, will initiate and continue on protocol with tapering course of Subutex, as needed tylenol, ibuprofen, bowel regimen, gabapentin, Bentyl, Vistaril, methocarbamol, clonidine, PRN nightly trazodone for insomnia, IV fluids, IV antiemetics. Once patient clinically improved and completion of taper nearing will plan consultation with case management for transition to next level of rehabilitation care. #2. Acute EtOH Withdrawal: Given concurrent interest in sobriety, will initiate and continue on protocol with taper course of Phenobarbital, as needed gabapentin, Catapres, Bentyl, Vistaril, IV fluids, IV antiemetics, Tylenol as needed for pain. Will consult Case management for assistance for transition to next level of rehabilitation care. Mag, phos pending. Maintain on CIWA protocol concurrently. #3. Polysubstance Abuse: Given polysubstance abuse especially with fentanyl to be cautious will obtain HIV, hepatitis and syphilis panel. #4. Schizophrenia/bipolar disorder/anxiety and depression: Clarifying but patient does not appear to be on any psychiatric medications, likely greatly contributing to his substance abuse history, encourage continued outpatient follow-up with psychiatry/psychology, 180 and case management consulted. #5. Chronic Kidney Disease Stage II per GFR trend: Admission BUN/Cr 23/1.12, GFR 87, baseline renal function primarily 0.8-1.0, repeat BMP in AM. #6. Obesity: Weight loss and lifestyle changes encouraged. #7. Tobacco Abuse: Encouraged cessation, inpatient consultation per RT, NR if desired. #8. Chronic back pain, thoracic and lumbar with radiculopathy with chronic pain syndrome: Also a large component of substance abuse, would benefit from evaluation and ongoing treatment outpatient with pain management and usage of nonnarcotic modalities. #9. DVT prophylaxis: Low risk for type of admission. Charges/Coding Visit Charges Inpatient E&M: 48771 Init Hosp L3
[2024-08-31 19:00] VITALS: PULSE 81; RESP 18; O2SAT 100
[2024-08-31 19:44] LABS: Amphetamine Urine PRESUMPTIVE POSITIVE (<1000 ng/mL); Barbiturate Urine PRESUMPTIVE POSITIVE (< 200 ng/mL); Benzodiazepine Urine NEGATIVE (< 200 ng/mL); Buprenorphine Urine NEGATIVE (< 200 ng/mL); Cocaine Urine PRESUMPTIVE POSITIVE (< 300 ng/mL); Fentanyl, Urine PRESUMPTIVE POSITIVE; Methadone Urine NEGATIVE (< 300 ng/mL); Opiates Urine NEGATIVE (< 300 ng/mL); Oxycodone, Urine NEGATIVE (< 100 ng/mL); PCP Urine NEGATIVE (< 25 ng/mL); THC Urine NEGATIVE (< 50 ng/mL)
[2024-08-31] MEDS: Ondansetron ODT 4 MG Tablet PO (19:53)
[2024-08-31 19:55] VITALS: BP 146/87; PULSE 79; RESP 16; TEMP 36.7; O2SAT 100
[2024-08-31 20:11] LABS: HIV Nonreactive (Nonreactive); Magnesium 2.2 mg/dL (1.5-2.2); Syphilis Antibodies Nonreactive (Nonreactive)
--- NOTE | 2024-08-31 20:12 | ED.RN ---
Patient seen walking outside. This nurse went outside to make sure patient did not have an IV in and appeared to be leaving. Approximately 5-10 minutes later he walked back in. When asked what he was doing outside he stated, my nurse said I could kiss my antolin. Patient did smell of cigarette smoke. Patient then walked back to his room. Perla CARBONE notified.
[2024-08-31 20:58] VITALS: BMI 36.6
[2024-08-31 21:17] LABS: Phosphorus 3.7 mg/dL (2.7-4.5)
[2024-08-31] MEDS: cloNIDine HCl 0.1 MG Tablet PO (21:52)
[2024-08-31] MEDS: traZODone 100 MG Tablet PO (21:52)
[2024-08-31] MEDS: Buprenorphine HCl 2 MG TAB.SUBL 4 MG SL (21:53)
[2024-08-31] MEDS: Ibuprofen 600 MG Tablet PO (21:53)
[2024-08-31] MEDS: hydrOXYzine PAM 25 MG Capsule 50 MG PO (21:53)
[2024-08-31] MEDS: Methocarbamol 750 MG Tablet PO (21:54)
[2024-08-31] MEDS: Lactated Ringers 1,000 ML 125 ML IV (21:56)
[2024-08-31 21:59] VITALS: BP 155/93; PULSE 71; RESP 17; TEMP 37.1; O2SAT 96
[2024-08-31 22:10] LABS: Hepatitis B Surface Antigen Nonreactive (Nonreactive); Hepatitis C Antibody Nonreactive (Nonreactive)
--- NOTE | 2024-08-31 22:24 | NURSING ---
This RN checked with Dr. Sanford to make sure Phenobarbital that was ordered as IV was the correct Route. Dr. Sanford did say Phenobarbital was in deed supposed to be IV.
[2024-08-31 22:38] LABS: Hepatitis B Surface Antibody Nonreactive
[2024-08-31] MEDS: Phenobarbital Sodium 65 MG/ML Vial 97.5 MG IV (23:34)
[2024-08-31] MEDS: 0.9% Saline Lock 10 ML Syringe IV (23:34)
[2024-09-01] MEDS: Phenobarbital Sodium 65 MG/ML Vial 97.5 MG IV ×2 (03:04→06:17)
[2024-09-01 03:07] VITALS: BP 118/70; PULSE 61; RESP 20; TEMP 35.8; O2SAT 98
[2024-09-01 06:09] VITALS: BP 117/97; PULSE 55; RESP 18; TEMP 36.3; O2SAT 99
[2024-09-01] MEDS: Buprenorphine HCl 2 MG TAB.SUBL 4 MG SL (06:17)
[2024-09-01 09:25] VITALS: BP 148/98; PULSE 68; RESP 18; TEMP 36.6; O2SAT 98
[2024-09-01] MEDS: Thiamine Hydrochloride 100 MG Tablet PO (09:31)
[2024-09-01] MEDS: Folic Acid 1 MG Tablet PO (09:31)
[2024-09-01] MEDS: Multivitamins,Ther W-Minerals Tablet 1 TABLET PO (09:32)
[2024-09-01] MEDS: Phenobarbital 32.4 MG Tablet 97.2 MG PO (09:39)
--- NOTE | 2024-09-01 10:29 | PN.HOSP_ITS ---
Subjective Subjective CIWA score of 10 and a Cina score of 6 Objective Data Objective Data Vital Signs: Vital Signs Temp Pulse Resp BP Pulse Ox O2 Del Method 97.9 F 68 18 148/98 H 98 Room Air 09/01/24 09:25 09/01/24 09:25 09/01/24 09:25 09/01/24 09:25 09/01/24 09:25 09/01/24 09:25 Oxygen Delivery Method Room Air Weight: 263 lb Body Mass Index (BMI) 36.6 Intake & Output: Intake and Output for Last 24 Hours 08/31/24 09/01/24 09/02/24 03:59 03:59 03:59 Intake Total 400 / 400 1000 / 1000 Balance 400 / 400 1000 / 1000 Lab / Micro Data 08/31/24 18:00 08/31/24 18:00 Labs: Laboratory Results - last 24 hr 08/31/24 18:00: WBC 15.9 H, RBC 5.20, Hgb 16.8 H, Hct 48.1, MCV 92.5, MCH 32.3 H , MCHC 34.9, RDW Std Deviation 42.2, RDW Coeff of Melisa 12.3, Plt Count 253, MPV 9.6, Immature Gran % (Auto) 0.300, Neut % (Auto) 78.8 H, Lymph % (Auto) 13.4 L, [place] % (Auto) 6.3, Eos % (Auto) 0.9, Baso % (Auto) 0.3, Absolute Neuts (auto) 12.6 H, Absolute Lymphs (auto) 2.14, Nucleated RBC % 0, Sodium 144, Potassium 3.9, Chloride 106, Carbon Dioxide 25.7, Anion Gap 13, BUN 23 H, Creatinine 1.12, Estim Creat Clear Calc 119.12, Est GFR (MDRD) Non-Af 87, BUN/Creatinine Ratio 20.4 H, Glucose 97, Calcium 9.7, Phosphorus 3.7, Magnesium 2.2, Total Bilirubin 0.82, AST 53 H, ALT 24, Alkaline Phosphatase 134 H, Total Protein 7.6, Albumin 4.4, Globulin 3.2, Albumin/Globulin Ratio 1.4, Ethyl Alcohol < 10.1, Syphilis Total Ab Nonreactive, Hep Bs Antigen Nonreactive, Hep Bs Antibody Nonreactive, Hepatitis C Antibody Nonreactive, HIV 1&2 Antibody Nonreactive 08/31/24 18:52: Urine Opiates Screen NEGATIVE, U Buprenorphine Qual NEGATIVE, Ur Oxycodone Screen NEGATIVE, Urine Methadone Screen NEGATIVE, Urine Fentanyl Screen PRESUMPTIVE POSITIVE, Ur Barbiturates Screen PRESUMPTIVE POSITIVE, Ur Phencyclidine Scrn NEGATIVE, Ur Amphetamines Screen PRESUMPTIVE POSITIVE, U Benzodiazepines Scrn NEGATIVE, Urine Cocaine Screen PRESUMPTIVE POSITIVE, U Cannabinoids Screen NEGATIVE Physical Exam Narrative General: Alert, Oriented x3, Cooperative, No apparent distress HEENT: Atraumatic, PERRLA, EOMI, Normocephalic Oral: Moist Mucosa Neck: Supple, No JVD Lungs: Diminished, Normal air movement, No rhonchi, No wheeze, No rales Cardiovascular: Regular rate, Regular Rhythm, Normal S1, Normal S2, No murmurs Abdomen: Soft, Non Tender, Non-Distended, No Hepato-splenomegaly Extremities: No edema, Capillary Refill Less than 3 Seconds Skin: No rashes, No breakdown Musculoskeletal: No Tenderness to Palpation of Joints or Extremities Neurological: No focal neurological deficits, moves all extremities Psych/Mental Status: Flat, some anxiety Assessment & Plan Assessment/Plan (1) Opiate withdrawal: PLAN: Plan 1. Acute opiate and alcohol withdrawal/schizophrenia history of bipolar disorder/tobacco abuse ? Continue with the opiate and alcohol withdrawal protocol ? Will have her meet with 180 to develop a discharge plan ? Does not appear that he takes any psychiatric medications though given his history he would likely benefit from some therefore we will have him follow-up with psychiatry as well on discharge ? Discussed cessation, continue with the nicotine replacement ? He did have a leukocytosis on admission however he is afebrile with no other signs or symptoms of infection, therefore it is likely reactive. Will recheck a CBC in the morning DVT: Ambulation Charges/Coding Visit Charges Inpatient E&M: 05868 Subs Hosp L2
== END 2024-09-01 12:40 | disposition home or self-care (01) ==
LOC: ED 18:52 → MS3 09-01 07:18
PROVIDERS: Admitting Provider Family Medicine; Emergency Provider Emergency Medicine; Referring Provider Emergency Medicine; Visit Provider Family Medicine
DX: F11.23 Opioid dependence with withdrawal (principal); F20.9 Schizophrenia, unspecified; F31.9 Bipolar disorder, unspecified; F10.239 Alcohol dependence with withdrawal, unspecified; E66.9 Obesity, unspecified; M54.16 Radiculopathy, lumbar region; N18.2 Chronic kidney disease, stage 2 (mild); M19.90 Unspecified osteoarthritis, unspecified site; F17.210 Nicotine dependence, cigarettes, uncomplicated; G89.4 Chronic pain syndrome; F41.9 Anxiety disorder, unspecified; M54.15 Radiculopathy, thoracolumbar region; Y90.0 Blood alcohol level of less than 20 mg/100 ml; Z68.36 Body mass index [BMI] 36.0-36.9, adult
CPT/HCPCS: 80053; 80307; 82077; 83735; 84100; 85025; 86703; 86706; 86780; 86803; 87340; 96361; 96374; 96376; 99221; 99285; A4216; G0378